=== PATIENT | female | born 1990 | race Caucasian/White ===

== ENCOUNTER 2016-08-13 16:08 | Outpatient (CLI) | payer MEDICAID ==
--- NOTE | 2016-08-14 09:25 | XRAY Report ---
THREE-VIEW LUMBAR SPINE: 08/13/2016 CLINICAL INDICATION: Back pain, sciatica. FINDINGS: AP, lateral, coned-down views of the lumbar spine are compared to previous films of 2014. There is minimal levoscoliosis, which may be positional in nature. There is no evidence of fr acture or subluxation. The disk spaces are preserved. The visualized bowel gas pattern is normal. IMPRESSION: MINIMAL LEVOSCOLIOSIS, WHICH MAY BE POSITIONAL IN NATURE. NO EVIDENCE OF FRACTURE OR DUNLAP BLUXATION. JOB #: [id number] EXT JOB #:[id number]
== END 2016-08-13 16:09 | disposition home or self-care (01) ==
LOC: DI.N 16:08
PROVIDERS: ATTEND Family Medicine
DX: M54.41 Lumbago with sciatica, right side (principal); M41.86 Other forms of scoliosis, lumbar region
CPT/HCPCS: 72100

== ENCOUNTER 2016-08-27 07:35 | Outpatient (CLI) | payer MEDICAID ==
--- NOTE | 2016-08-27 10:19 | MRI Report ---
EXAM: MRI LUMBAR SPINE WITHOUT CONTRAST EXAM DATE: 08/27/2016 08:13 AM. CLINICAL HISTORY: Lumbago with sciatica, right side. COMPARISON: No prior lumbar MRI. TECHNIQUE: Multiplanar, multisequence T1-weighted and fluid-sensitive sequences of the lumbar spine f rom T12 to S1 without contrast. Other: None. FINDINGS: Spinal Cord: The conus terminates at T12-L1. No signal abnormality in the visualized spinal cord. Alignment: No spondylolysis or spondylolisthesis. Bone Marrow: Five kma-yhq-grtpmde lumbar vertebral bodies are assumed. No gross fractures or bone les ions. No bone marrow edema. Disk Levels/Facets: T12-L1: Unremarkable. L1-L2: Minimal incidental anterior disk bulge, otherwise unremarkable. L2-L3: Minimal incidental anterior disk bulge, otherwise unremarkable. L3-L4: Unremarkable. L4-L5: Unremarkable. L5-S1: Very small midline posterior disk bulge. Otherwise unremarkable, no stenosis. Musculature: Normal. No edema or fatty atrophy. Other: Unremarkable appearing facet joints. IMPRESSION: Minimal early degenerative changes at multiple levels without evidence for acute abnormal ity, disk extrusion or stenosis. Comment: The following findings are so common in adults without low back pain that while we report th eir presence, they must be interpreted with caution and in the context of the clinical situation. (Re orly Mercado et al, Spine 2001) Prevalence of findings in patients without low back pain: Disk degeneration (any evidence): 92% Disk desiccation/T2 signal loss: 83% Disk height loss: 56% Disk bulge: 64% Disk protrusion: 32% Annular tear/high intensity zone: 38% [facility] Referring Provider Line: [phone] SITE ID: [id number]
== END 2016-08-27 07:36 | disposition home or self-care (01) ==
LOC: DI 07:35
PROVIDERS: ATTEND Family Medicine
DX: M54.41 Lumbago with sciatica, right side (principal)
CPT/HCPCS: 72148

== ENCOUNTER 2017-02-10 16:17 | Emergency (ER) | payer MEDICAID ==
[2017-02-10 16:29] VITALS: BP 118/70
--- NOTE | 2017-02-10 17:09 | XRAY Preliminary Report ---
Exam: XR CHEST 2 VIEW PA/LAT IMPRESSION: Normal 2-view chest radiography. [facility] SITE ID: [id number]
--- NOTE | 2017-02-10 17:23 | XRAY Report ---
EXAM: CHEST RADIOGRAPHY EXAM DATE: 02/10/2017 04:52 PM. CLINICAL HISTORY: Cough for the last several days. New onset of shortness of breath. COMPARISON: None. TECHNIQUE: 2 views. FINDINGS: Lungs/Pleura: No focal opacities evident. No pleural effusion. No pneumothorax. Normal volumes. Mediastinum: Heart and mediastinal contours are unremarkable. Other: None. IMPRESSION: Normal 2-view chest radiography. [facility] Referring Provider Line: [phone] SITE ID: [id number]
== END 2017-02-10 19:44 | disposition left against medical advice (07) ==
LOC: ED 16:17
DX: Z53.21 Procedure and treatment not carried out due to patient leaving prior to being seen by health care provider (principal)
CPT/HCPCS: 71020

== ENCOUNTER 2017-09-18 11:40 | Outpatient (CLI) | payer MEDICAID ==
[2017-09-18 19:18] LABS: BASOPHILS # (AUTO) 0.1 10^3/uL (0.0-0.1); BASOPHILS % (AUTO) 0.8 %; EOSINOPHILS # (AUTO) 0.5 10^3/uL (0.0-0.7); HGB - HEMOGLOBIN 13.1 g/dL (12.0-16.0); LYMPHOCYTES # (AUTO) 2.3 10^3/uL (1.5-3.5); LYMPHOCYTES % (AUTO) 30.2 %; MEAN CORPUSCULAR HEMOGLOBIN 28.9 pg (27.0-31.0); MEAN CORPUSCULAR HGB CONC 32.5 g/dL (32.0-36.0); MEAN PLATELET VOLUME 10.1 fL (7.9-10.8); MONOCYTES # (AUTO) 0.4 10^3/uL (0.0-1.0); MONOCYTES % (AUTO) 4.8 %; NEUTROPHILS # (AUTO) 4.4 10^3/uL (1.5-6.6); NEUTROPHILS % (AUTO) 58.2 %; PLT - PLATELET COUNT 229 10^3/uL (130-450); RED BLOOD COUNT 4.51 10^6/uL (4.20-5.40); RED CELL DISTRIBUTION WIDTH 13.5 % (12.0-15.0); WHITE BLOOD COUNT 7.5 x10^3/uL (4.8-10.8)
[2017-09-18 19:31] LABS: ALBUMIN 4.5 g/dL (3.2-5.5); ALBUMIN/GLOBULIN RATIO 1.5 (1.0-2.2); CALCIUM 9.9 mg/dL (8.5-10.3); CREATININE 0.8 mg/dL (0.4-1.0); TOTAL PROTEIN 7.6 g/dL (6.7-8.2)
== END 2017-09-18 11:41 | disposition home or self-care (01) ==
LOC: LAB.N 11:40
PROVIDERS: ATTEND Family Medicine
DX: R53.83 Other fatigue (principal)
CPT/HCPCS: 36415; 80053; 84443; 85025

== ENCOUNTER 2017-12-16 08:00 | Outpatient (CLI) | payer MEDICAID ==
[2017-12-16 14:32] LABS: BILIRUBIN,URINE NEGATIVE (NEGATIVE); GLUCOSE, URINE (UA) NEGATIVE (NEGATIVE); KETONES,URINE (UA) NEGATIVE (NEGATIVE); LEUKOCYTE ESTERASE, URINE NEGATIVE (NEGATIVE); NITRITE,URINE NEGATIVE (NEGATIVE); OCCULT BLOOD,URINE TRACE-INTA (NEGATIVE); PROTEIN,URINE NEGATIVE (NEGATIVE); UROBILINOGEN,URINE 0.2 (NORMAL) E.U./dL (NORMAL)
[2017-12-16 14:51] LABS: CLARITY,URINE CLOUDY (CLEAR)
[2017-12-16 14:52] LABS: AMORPHOUS SEDIMENT,UR Marked /LPF; BACTERIA,URINE None Seen /HPF (None Seen); RBC,URINE None Seen /HPF (0-5); SQUAMOUS EPITHELIAL CELL,UR NONE SEEN (<= Few)
== END 2017-12-16 08:01 | disposition home or self-care (01) ==
LOC: LAB.R 08:00
PROVIDERS: ATTEND Physician Assistant Medical
DX: R10.30 Lower abdominal pain, unspecified (principal); R31.9 Hematuria, unspecified; R35.0 Frequency of micturition
CPT/HCPCS: 81001; 87086

== ENCOUNTER 2017-12-22 19:31 | Outpatient (CLI) | payer MEDICAID ==
--- NOTE | 2017-12-23 11:00 | Ultrasound Report ---
Reason: GROIN PAIN,LEFT Procedure Date: 12/22/2017 Accession Number: [id number] / [id number] Procedure: US - Pelvic Limited or F/U CPT Code: FULL RESULT: EXAM: LIMITED PELVIC ULTRASOUND EXAM DATE: 12/22/2017 07:55 PM. CLINICAL HISTORY: GROIN Pain, left. COMPARISON: None. TECHNIQUE: Real-time scanning was performed of the left lower quadrant with static images obtained. FINDINGS: A total of 25 images including dynamic/cine capture are submitted of the left lower quadrant with limited use of color Doppler. A partially-cystic, partially-solid hypoechoic structure labeled left adnexa and area of pain demonstrates arterial flow, measures 4.8 x 2.6 x 3.9 cm with a cystic component measuring 1.8 x 1.4 x 1.5 cm. This is compatible with an ovary with a dominant follicle. While arterial flow is demonstrated, no venous outflow is shown, and the ovarian features are somewhat indistinct with the ovary being top normal in size. This raises concern for partial torsion of the venous outflow or torsion-detorsion given that this represents the patient's area of pain. History of left-sided groin pain which increases with heavy lifting and a clinical concern for hernia are provided. Static and dynamic images in the region of the inguinal canal demonstrate peritoneal fat content traversing abdominal wall defect medial to the common femoral artery and vein. IMPRESSION: 1. Suspect reducible fat-containing left inguinal hernia. 2. Ovarian torsion-detorsion or partial torsion is not excluded based on this examination. Recommend formal transabdominal and transvaginal pelvic ultrasound to exclude ovarian torsion. Direct sonographic evaluation and correlation of the suspected inguinal hernia by the radiologist with no additional charge to the patient could also be performed at that time. The above findings of possible ovarian torsion as well as a likely reducible fat-containing inguinal hernia were discussed with Carter Finney by Dr. Jarett Dee at 09:17 hrs on 12/23/17. The agreed upon plan by both parties is that the patient will be asked to return to the ultrasound department today at her earliest convenience for further imaging. HIWOT
== END 2017-12-22 19:32 | disposition home or self-care (01) ==
LOC: DI 19:31
PROVIDERS: ATTEND Physician Assistant Medical
DX: R10.32 Left lower quadrant pain (principal)
CPT/HCPCS: 76857

== ENCOUNTER 2017-12-23 10:25 | Outpatient (CLI) | payer MEDICAID ==
--- NOTE | 2017-12-24 13:56 | Ultrasound Report ---
Reason: OVARIAN TORSIO Procedure Date: 12/23/2017 Accession Number: [id number] / [id number] Procedure: US - Pelvic w/Transvaginal CPT Code: FULL RESULT: EXAM: PELVIC ULTRASOUND EXAM DATE: 12/23/2017 11:44 AM. CLINICAL HISTORY: Intermittent left-sided pain. Prior . COMPARISON: PELVIS LIMITED 12/22/2017 7:55 PM. TECHNIQUE: Realtime transabdominal pelvic scan performed to identify the uterus and adnexa and as an overview of other pelvic structures, followed by transvaginal scan to provide greater detail of the uterus and adnexa, with static image documentation. FINDINGS: Uterus: 8.3 x 4.0 x 5.2 cm, volume 90.3 cc. Anteverted position. Normal overall size and echotexture. Masses: None. Endometrium: 13.9 mm. Normal. Cervix: Unremarkable. Right Ovary: 3.1 x 2.0 x 2.8 cm, volume 3.2 cc. Normal echotexture and blood flow. Left Ovary: 4.2 x 2.6 x 3.4 cm, volume 19.4 cc. Normal arterial and venous blood flow. 1.8 x 0.8 x 0.9 cm simple cyst. 1.9 x 1.9 x 1.9 cm avascular complex cyst. These findings correspond to the previously described left ovary. Free Fluid: Very small amount of free fluid. Other: None. IMPRESSION: 1. No ovarian torsion. 2. 1.9 cm hemorrhagic cyst left ovary. 3. Very small amount of free fluid. [facility]
== END 2017-12-23 10:26 | disposition home or self-care (01) ==
LOC: DI 10:25
PROVIDERS: ATTEND Physician Assistant Medical
DX: N83.202 Unspecified ovarian cyst, left side (principal); R10.9 Unspecified abdominal pain
CPT/HCPCS: 76830; 76856

== ENCOUNTER 2018-02-03 17:14 | Emergency (ER) | payer MEDICAID ==
[2018-02-03 17:54] LABS: BASOPHILS # (AUTO) 0.1 10^3/uL (0.0-0.1); BASOPHILS % (AUTO) 0.8 %; EOSINOPHILS # (AUTO) 0.5 10^3/uL (0.0-0.7); EOSINOPHILS % (AUTO) 5.5 %; HGB - HEMOGLOBIN 13.2 g/dL (12.0-16.0); LYMPHOCYTES # (AUTO) 3.3 10^3/uL (1.5-3.5); LYMPHOCYTES % (AUTO) 36.8 %; MEAN CORPUSCULAR HEMOGLOBIN 29.6 pg (27.0-31.0); MEAN CORPUSCULAR HGB CONC 33.6 g/dL (32.0-36.0); MEAN CORPUSCULAR VOLUME 87.9 fL (81.0-99.0); MONOCYTES # (AUTO) 0.4 10^3/uL (0.0-1.0); MONOCYTES % (AUTO) 4.5 %; NEUTROPHILS # (AUTO) 4.7 10^3/uL (1.5-6.6); NEUTROPHILS % (AUTO) 52.4 %; PLT - PLATELET COUNT 242 10^3/uL (130-450); RED BLOOD COUNT 4.47 10^6/uL (4.20-5.40); RED CELL DISTRIBUTION WIDTH 13.1 % (12.0-15.0); WHITE BLOOD COUNT 8.9 x10^3/uL (4.8-10.8)
[2018-02-03 18:11] LABS: BILIRUBIN,URINE NEGATIVE (NEGATIVE); GLUCOSE, URINE (UA) NEGATIVE (NEGATIVE); KETONES,URINE (UA) NEGATIVE (NEGATIVE); LEUKOCYTE ESTERASE, URINE NEGATIVE (NEGATIVE); NITRITE,URINE NEGATIVE (NEGATIVE); OCCULT BLOOD,URINE NEGATIVE (NEGATIVE); PROTEIN,URINE NEGATIVE (NEGATIVE); UROBILINOGEN,URINE 0.2 (NORMAL) E.U./dL (NORMAL)
[2018-02-03 18:13] LABS: ALBUMIN/GLOBULIN RATIO 1.7 (1.0-2.2); BILIRUBIN,TOTAL 0.9 mg/dL (0.2-1.0); CALCIUM 9.7 mg/dL (8.5-10.3); CREATININE 0.8 mg/dL (0.4-1.0)
[2018-02-03 18:23] LABS: CLARITY,URINE CLEAR (CLEAR); HCG UR QUAL NEGATIVE
[2018-02-03] MEDS ORDERED: KETOROLAC 60 MG/2 ML VIAL IVP STA (18:31)
--- NOTE | 2018-02-03 18:33 | ED Physician Documentation ---
PD HPI ABD PAIN - Stated complaint Stated Complaint: LT ABD PX - Chief complaint Chief Complaint: Abd Pain - History obtained from History obtained from: Patient - History of Present Illness Timing - onset: Other (27-year-old woman status post remote tubal ligation has had ongoing left pelvic pain for the last 2 years. She had an ultrasound in November showing a 1.9 cm ovarian cyst without evidence of torsion. At 230 today the pain suddenly became worse. There is no associated bleeding but she does have irregular menses now. Not nauseous. No changes in bowel movements.) Review of Systems Ten Systems: 10 systems reviewed and negative Constitutional: reports: Reviewed and negative Nose: reports: Reviewed and negative Cardiac: reports: Reviewed and negative Respiratory: reports: Reviewed and negative PD PAST MEDICAL HISTORY - Past Medical History Cardiovascular: None Respiratory: None Endocrine/Autoimmune: None GI: None [employer]ER: None : None HEENT: None Psych: None Musculoskeletal: Chronic back pain Derm: None - Past Surgical History Past Surgical History: Yes /[employer]ES [employer]ER: section, Tubal ligation - Present Medications Home Medications: Ambulatory Orders Medication Instructions Recorded Confirmed Cyclobenzaprine [Flexeril] 10 mg PO TID PRN 02/10/17 02/10/17 Trazodone HCl 100 mg PO DAILY 02/10/17 02/10/17 Meloxicam [Mobic] 7.5 mg PO BID PRN #20 tablet 02/03/18 Oxycodone HCl/Acetaminophen 1 - 2 each PO Q6H PRN #14 tablet 02/03/18 [Percocet 5-325 mg Tablet] - Allergies Allergies/Adverse Reactions: Allergies Allergy/AdvReac Type Severity Reaction Status Date / Time hydrocodone Allergy Itching Verified 02/03/18 17:21 - Social History Does the pt smoke?: Yes Smoking Status: Current every day smoker Does the pt drink ETOH?: No Does the pt have substance abuse?: No - Immunizations Immunizations are current?: Yes - POLST Patient has POLST: No PD ED PE NORMAL - Vitals Vital signs reviewed: Yes - General General: Alert and oriented X 3, No acute distress - Neck Neck: Supple, no meningeal sign, No bony TTP - Cardiac Cardiac: RRR, No murmur - Respiratory Respiratory: No respiratory distress, Clear bilaterally - Abdomen Abdomen: Normal bowel sounds, Soft, Non tender - Derm Derm: Normal color, Warm and dry - Extremities Extremities: No edema, No calf tenderness / cord - Neuro Neuro: Alert and oriented X 3, Normal speech - Psych Psych: Normal mood, Normal affect Results - Vitals Vitals: Vital Signs - 24 hr 02/03/18 17:19 Temperature 36.8 C Heart Rate 81 Respiratory 20 Rate Blood Pressure 127/72 O2 Saturation 100 Oxygen O2 Source Room air - Labs Labs: Laboratory Tests 02/03/18 02/03/18 02/03/18 17:47 17:47 18:05 WBC 8.9 RBC 4.47 Hgb 13.2 Hct 39.3 MCV 87.9 MCH 29.6 MCHC 33.6 RDW 13.1 Plt Count 242 MPV 9.0 Neut # (Auto) 4.7 Lymph # (Auto) 3.3 [place] # (Auto) 0.4 Eos # (Auto) 0.5 Baso # (Auto) 0.1 Absolute Nucleated RBC 0.00 Nucleated RBC % 0.0 Sodium 137 Potassium 3.5 Chloride 100 L Carbon Dioxide 28 Anion Gap 9.0 BUN 14 Creatinine 0.8 Estimated GFR (MDRD) 87 L Glucose 88 Calcium 9.7 Total Bilirubin 0.9 AST 27 ALT 22 Alkaline Phosphatase 65 Total Protein 8.0 Albumin 5.0 Globulin 3.0 Albumin/Globulin Ratio 1.7 Lipase 24 Urine Color YELLOW Urine Clarity CLEAR Urine pH 7.0 Ur Specific [place] 1.025 Urine Protein NEGATIVE Urine Glucose (UA) NEGATIVE Urine Ketones NEGATIVE Urine Occult Blood NEGATIVE Urine Nitrite NEGATIVE Urine Bilirubin NEGATIVE Urine Urobilinogen 0.2 (NORMAL) Ur Leukocyte Esterase NEGATIVE Ur Microscopic Review NOT INDICATED Urine Culture Comments NOT INDICATED Urine HCG, Qual NEGATIVE - Rads (name of study) CT A/P Radiology: EMP read contemporaneously (negative) PD MEDICAL DECISION MAKING - ED course ED course: This is a 27-year-old woman with chronic pelvic pain previously attributed to left ovarian cyst who had a sudden increase in pain today. She has a benign abdominal examination. CT was done to evaluate for torsion and other pathologies on the left side which was negative. She was feeling better after Toradol. Departure - Departure Disposition: 01 Home, Self Care Clinical Impression: Pelvic pain Condition: Good Record reviewed to determine appropriate education?: Yes Instructions: ED Pelvic Pain [facility] Prescriptions: Meloxicam [Mobic] 7.5 mg PO BID PRN #20 tablet PRN Reason: Pain Oxycodone HCl/Acetaminophen [Percocet 5-325 mg Tablet] 1 - 2 each PO Q6H PRN #14 tablet PRN Reason: pain Comments: Follow-up with your OB next week as scheduled. Return for new or worsening symptoms. Do not drink or drive while taking narcotic pain medication. Note that many narcotic pain relievers also contain Tylenol/acetaminophen. Please ensure that your total dose of acetaminophen from all sources does not exceed 3 g (3000 mg) per day. You may get constipated while on this medication. Take a stool softener such as Colace twice a day while you are on it. Also add an kyps-rwy-wecejvu laxative such as senna or MiraLAX on any day that you do not have a bowel movement. If you received a narcotic pain medication or sedative while in the emergency department, do not drive for the next 24 hours.
[2018-02-03] MEDS ORDERED: IOPAMIDOL-300 100 ML VIAL ONE (18:56)
[2018-02-03] MEDS ORDERED: IOPAMIDOL-300 100 ML VIAL IVP ONE (19:25)
--- NOTE | 2018-02-03 19:35 | CT Report ---
Reason: LLQ pain, IV only Procedure Date: 02/03/2018 Accession Number: [id number] / [id number] Procedure: CT - Abdomen/Pelvis W/ CPT Code: FULL RESULT: EXAM: CT ABDOMEN AND PELVIS EXAM DATE: 02/03/2018 07:21 PM. CLINICAL HISTORY: LLQ pain, IV only. COMPARISONS: ABDOMEN/PELVIS W/O 12/29/2013 2:24 AM. TECHNIQUE: Routine helical CT imaging was performed through the abdomen and pelvis. IV contrast: ISOVUE 300 100mL. Enteric contrast: No. Reconstructions: Coronal and sagittal. In accordance with CT protocol optimization, one or more of the following dose reduction techniques were utilized for this exam: automated exposure control, adjustment of mA and/or KV based on patient size, or use of iterative reconstructive technique. FINDINGS: Lung Bases: Unremarkable. Liver: Normal. No masses. Gallbladder/Bile Ducts: Unremarkable. Spleen: Normal. Pancreas: Normal. Adrenal Glands: Normal. Kidneys: Normal. No masses or hydronephrosis. Peritoneal Cavity/Bowel: Normal. No free fluid, free air or adenopathy. No masses or acute inflammatory process. The appendix is well visualized and normal. Pelvic Organs: Normal. The bladder and visualized pelvic organs are within normal limits. Vasculature: No aneurysms or other significant abnormality. Bones: No significant abnormality. Other: None. IMPRESSION: Normal abdomen and pelvis CT. [facility]
[2018-02-03 20:08] VITALS: BP 121/86
== END 2018-02-03 20:10 | disposition home or self-care (01) ==
LOC: ED 17:14
DX: R10.2 Pelvic and perineal pain (principal); G89.29 Other chronic pain; N92.6 Irregular menstruation, unspecified; F17.200 Nicotine dependence, unspecified, uncomplicated; Z98.51 Tubal ligation status
CPT/HCPCS: 36415; 74177; 80053; 81003; 81025; 83690; 85025; 96374; 99283; Q9967; 81001; 87086

== ENCOUNTER 2018-02-08 10:21 | Outpatient (CLI) | payer MEDICAID | END 2018-02-08 10:22 | disposition home or self-care (01) | LOC: LAB.R 10:21 | PROVIDERS: ATTEND Registered Nurse | DX: R10.2 Pelvic and perineal pain (principal) | CPT/HCPCS: 87491; 87591 ==

== ENCOUNTER 2018-02-10 16:00 | Outpatient (CLI) | payer MEDICAID ==
--- NOTE | 2018-02-11 09:22 | Ultrasound Report ---
Reason: PELVIC AND PERINEAL PAIN Procedure Date: 02/10/2018 Accession Number: [id number] / [id number] Procedure: US - Pelvic w/Transvaginal CPT Code: FULL RESULT: EXAM: PELVIC ULTRASOUND EXAM DATE: 02/10/2018 05:04 PM. CLINICAL HISTORY: Pelvic and perineal pain. Last menstrual period 01/28/2018. Heavy flow at menstruation. COMPARISON: Abdomen/pelvis w/ 02/03/2018 7:11 PM. Pelvis limited 12/23/2017 7:55 PM. TECHNIQUE: Realtime transabdominal pelvic scan performed to identify the uterus and adnexa and as an overview of other pelvic structures, followed by transvaginal scan to provide greater detail of the uterus and adnexa, with static image documentation. FINDINGS: Uterus: 6.4 x 3.9 x 4.6 cm, volume 59.5 cc. Anteverted position. Normal overall size and echotexture. Masses: None. Endometrium: 7.6 mm. Normal. Cervix: Unremarkable. Right Ovary: 4.1 x 2.6 x 2.7 cm, volume 14.8 cc. Normal echotexture and blood flow. Left Ovary: 2.0 x 2.5 x 2.3 cm, volume 5.8 cc. Normal echotexture and blood flow. Free Fluid: Small amount, within physiologic limits. Other: None. IMPRESSION: Normal pelvic ultrasound. [facility]
== END 2018-02-10 16:01 | disposition home or self-care (01) ==
LOC: DI 16:00
PROVIDERS: ATTEND Registered Nurse
DX: R10.2 Pelvic and perineal pain (principal)
CPT/HCPCS: 76830; 76856

== ENCOUNTER 2018-02-16 15:43 | Outpatient (CLI) | payer MEDICAID | END 2018-02-16 23:59 | disposition home or self-care (01) | LOC: LAB.R 15:43 | PROVIDERS: ATTEND Obstetrics & Gynecology | DX: Z11.3 Encounter for screening for infections with a predominantly sexual mode of transmission (principal) | CPT/HCPCS: 87491; 87591 ==

== ENCOUNTER 2018-03-15 10:55 | Outpatient (CLI) | payer MEDICAID ==
[2018-03-15 11:25] LABS: HCG UR QUAL NEGATIVE
[2018-03-15 11:28] LABS: BASOPHILS # (AUTO) 0.1 10^3/uL (0.0-0.1); BASOPHILS % (AUTO) 0.9 %; EOSINOPHILS % (AUTO) 11.2 %; HGB - HEMOGLOBIN 14.6 g/dL (12.0-16.0); LYMPHOCYTES # (AUTO) 2.6 10^3/uL (1.5-3.5); LYMPHOCYTES % (AUTO) 29.4 %; MEAN CORPUSCULAR HGB CONC 34.1 g/dL (32.0-36.0); MEAN CORPUSCULAR VOLUME 88.2 fL (81.0-99.0); MEAN PLATELET VOLUME 9.6 fL (7.9-10.8); MONOCYTES # (AUTO) 0.4 10^3/uL (0.0-1.0); NEUTROPHILS # (AUTO) 4.8 10^3/uL (1.5-6.6); NEUTROPHILS % (AUTO) 53.5 %; PLT - PLATELET COUNT 235 10^3/uL (130-450); RED BLOOD COUNT 4.87 10^6/uL (4.20-5.40); RED CELL DISTRIBUTION WIDTH 12.5 % (12.0-15.0); WHITE BLOOD COUNT 8.9 x10^3/uL (4.8-10.8)
[2018-03-15 11:50] LABS: ALBUMIN 4.9 g/dL (3.2-5.5); ALBUMIN/GLOBULIN RATIO 1.5 (1.0-2.2); BILIRUBIN,TOTAL 0.7 mg/dL (0.2-1.0); CALCIUM 9.9 mg/dL (8.5-10.3); CREATININE 0.6 mg/dL (0.4-1.0); TOTAL PROTEIN 8.2 g/dL (6.7-8.2)
== END 2018-03-15 10:56 | disposition home or self-care (01) ==
LOC: LAB 10:55
PROVIDERS: ATTEND Obstetrics & Gynecology
DX: Z01.812 Encounter for preprocedural laboratory examination (principal); R10.2 Pelvic and perineal pain; R10.32 Left lower quadrant pain
CPT/HCPCS: 36415; 80053; 81025; 85025

== ENCOUNTER 2018-03-17 11:17 | Day surgery (SDC) | payer MEDICAID ==
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
[2018-03-17] MEDS ORDERED: LACTATED RINGERS 1,000 ML IV ONE ×2 (12:05→15:59)
--- NOTE | 2018-03-17 12:18 | ANESTHESIA ---
Pre-Anesthesia VS, & Labs - Diagnosis pelvic pain - Procedure laparoscopy, cystoscopy Height 5 ft 7 in Weight (kg) 59.4 kg Body Mass Index 20.3 - NPO >8 hours - Is Patient ?: No Home Medications and Allergies Cyclobenzaprine [Flexeril] 10 mg PO TID PRN 02/10/17 Trazodone HCl 100 mg PO DAILY 02/10/17 Allergies/Adverse Reactions: Allergies Allergy/AdvReac Type Severity Reaction Status Date / Time hydrocodone Allergy Itching Verified 02/03/18 17:21 Anes History & Medical History - Anesthetic History Anesthesia Complications: reports: No previous complications - Medical History Cardiovascular: reports: None Pulmonary: reports: None Gastrointestinal: reports: None Urinary: reports: None Musculoskeletal: reports: Chronic back pain Endocrine/Autoimmune: reports: None Blood Disorders: reports: None Skin: reports: None Smoking Status: Current every day smoker - Surgical History Gynecologic: section, Tubal ligation Exam General: Alert Dental: WNL Mouth Opening: Greater than 4 Fingerbreadths Neck Mobility: Normal Mallampati classification: II Thyromental Distance: greater than 6 cm Respiratory: Lungs clear Cardiovascular: Regular rate Plan Anesthesia Type: General Consent for Procedure(s) Verified and Reviewed: Yes Code Status: Attempt Resuscitation ASA classification: 2-Mild systemic disease Is this case an emergency?: Yes
[2018-03-17] MEDS ORDERED: oxyCODONE 5 MG TABLET PO PRN (13:00)
[2018-03-17] MEDS ORDERED: ALPRAZolam 0.25 MG TABLET PO PRN (13:02)
[2018-03-17] MEDS ORDERED: BUPIVACAINE 0.25%-EPI 1:200000 PF 30 ML VIAL ONE (13:04)
--- NOTE | 2018-03-17 13:18 | OPERATIVE REPORT ---
Operative Report - General Planned Procedure: Diagnostic laparoscopy and cystoscopy Pre-Op Diagnosis: Abdominal and pelvic pain, mostly left-sided; Dyscrasia; Hematuria Procedure Performed: Diagnostic laparoscopy, Laparoscopic excision of endometriosis from 2 sites and cystoscopy Post Op Diagnosis: Endometriosis; Interstitial Cystitis; same as above - Procedure Note Primary Surgeon: Bala Bolanos MD, FACOG, FICS Anesthesia Provider: Rubens Phillip CRNA Anesthesia Technique: General ET tube Pathology: L Uterosacral Endometriosis: L Pararectal endometriosis; Endometrial sample IV Fluids (mL): 1,000 Estimated Blood Loss (mL): 5 Urine Output (mL): 85 Drain/Tube Type: Other (Rojo) Complications: None - Other Other Information/Narrative: FINDINGS 1. The external exam genitalia were examined and no concerning lesions were discovered. There was no evidence of genital trauma. The hiatus was 2 centimeters in diameter. The clitoris was of normal size. The distribution of pubic hair was normal. The urethra was was had a appropriate angle and of normal caliber. 2. Examination of the vagina found a normal rugated mucosa without evidence of lesions. There was no blood or discharge evident. Note the vagina had been prepped prior to examination. 3. Cervix was without significant cervicitis or visible plaques/lesions. There was no paracervical fullness. 4. Uterus was retroverted retroflexed and normal size without evidence of . The contour the uterus was smooth and not suggestive of fibroids. There were some minor bladder adhesions from her prior section. These did not explain her pain. The inguinal canal opening was somewhat generous but no evidence of true herniation. 5. Ovaries were of normal size and mobile. 6. On the left uterosacral ligament there was a classic powder burn and lab found extending roughly 2 x 3 cm. Around it was dense scarification. This finding explained her left lower quadrant pain. 7. In the left her rectal region there was a similar scarified bleb of endometriosis approximately extending out over 2 cm. 8. The appendix appeared normal but was partially retrocecal. 9. Liver showed evidence of mild scarification 10. Examination of the previous scar did not find any nodules. PREOP DISCUSSION Prior to entering the OR, I met the patient and family in the preoperative holding room. Patient confirms that she continues to have mid abdominal and left lower quadrant pain particularly on defecation. We reviewed her informed consent. Our discussion included occasions, mechanics of the procedures, intended benefits, risks /possible complications and alternatives. She is aware of the possibility of blood loss, transfusion, wound infection, damage to bowel, damage to bladder or urinary tract and postoperative pain. She understands that surgery may not remedy all of her problems and over time recurrent pain could develop. She realizes that visual abnormality does not guarantee pathology and occasionally normal appearing organs may harbor unseen pathology or can develop pathology in the future. All questions were reviewed and answered. Informed consent paperwork was signed. Patient's medical history and intended procedure was reviewed with anesthesiology and OR staff. LAPAROSCOPY Patient was brought into the operating room and placed on the table in the supine position. She was uneventfully induced and intubated. She was moved to the low dorsal lithotomy position on [facility] mobile stirrups. Timeout briefing was done per protocol. She was prepped and draped in the customary sterile fashion. Exam under anesthesia was done. A Graves speculum was used to visualize the cervix. The anterior cervical lip was grasped with single-tooth tenaculum. Serial application of Hegar probes was employed to determine the endocervical axis and gently dilate. HUMI uterine manipulator was placed uneventfully. All instruments were then removed from the vagina. Rojo was placed, with clear urine output. After injection of Marcaine quarter percent with epinephrine local, a small incision was placed under the umbilical skin fold. A 5 mm Visiport trocar was introduced through the incision and into the abdomen under direct visualization. The abdomen was insufflated with CO2 gas at 12 mm of pressure. Atraumatic entry was confirmed. A 5 mm trocars were uneventfully inserted into the left and right lower quadrant under direct visualization. Patient was placed in deeper Trendelenburg and the abdominal and pelvic contents were assessed. Past sick powder burn/cystic endometriosis was found on the left uterosacral ligament and the pararectal area. Reference findings section and photos. The area of endometriosis over the left uterosacral ligament was identified and demarcated. The endometriosis lay over the ureter and uterine vessels making excision tedious. Beginning at inferior margins of the lesion the peritoneum was grasped and incised to enter the retroperitoneal space. Next continued tension/counter tension and sharp dissection was used to excise the 3 cm x 2 cm patch of endometrium in total. Judicious use of bipolar cautery then was used at the excision edges to obtain complete hemostasis. Reference photo. Perirectal area of endometriosis was identified and placed on tension as to tented away from the rectum. Using scissors a 2 cm oval of endometriosis peritoneum was incised circumferentially and using countertraction the endometriosis was excised in total. Portions of the endometriosis exhibited s ub-serosal cystic activity present. The abdomen was desufflated of CO2 gas and the legs were moved to a high dorsal lithotomy position. HUMI was removed. The abdomen was insufflated with 700 cc of warm normal saline, patient placed in the Trendelenburg position and then all residual CO2 was vented from the abdomen. Trocar sleeves were removed under direct visualization. Skin was closed with interrupted subcuticular stitches of 4-0 Monocryl and dressed with Dermabond. CYSTOSCOPY 70 degree video cystoscope was calibrated and white balanced. The cystoscope was lubricated and passed atraumatically through the urethra into the bladder cavity. Bladder was insufflated with sterile normal ceric saline. Systematic inspection revealed no encroachment on the bladder such as stitches or per foration. Both ureters were patent with free flow of urine. Photographs were taken to document the same Patient was uneventfully aroused from anesthesia. All sponge needle and instrument counts were confirmed as correct. Patient was taken to the recovery room in stable condition. DISPOSITION When patient sufficiently recovers, she will be discharged home. Medications for pain ibuprofen and oxycodone have already been written. She was given complete warning sign and callback instructions. She will be seen in 2 weeks to review operative findings and wound check.
[2018-03-17] MEDS ORDERED: GLYCOPYRROLATE 1 MG/5 ML VIAL IVP ONE (14:00)
[2018-03-17] MEDS ORDERED: fentaNYL 100 MCG/2 ML VIAL IVP ONE (14:00)
[2018-03-17] MEDS ORDERED: ONDANSETRON 4 MG/2 ML VIAL IVP ONE (14:00)
[2018-03-17] MEDS ORDERED: PROPOFOL 200 MG/20 ML VIAL IVP ONE (14:00)
[2018-03-17] MEDS ORDERED: DEXAMETHASONE 4 MG/ML VIAL IVP ONE (14:00)
[2018-03-17] MEDS ORDERED: BUPIVACAINE 0.25%-EPI 1:200000 PF 30 ML VIAL SUBQ ONE ×2 (14:00)
[2018-03-17] MEDS ORDERED: MIDAZOLAM 2 MG/2 ML VIAL IVP ONE (14:00)
[2018-03-17] MEDS ORDERED: KETOROLAC 30 MG/ML VIAL IVP ONE (14:00)
[2018-03-17] MEDS ORDERED: NEOSTIGMINE 1 MG/1 ML 10 ML MDV IVP ONE (14:00)
[2018-03-17] MEDS ORDERED: LIDOCAINE-MPF 2% 5 ML VIAL IM ONE (14:00)
[2018-03-17] MEDS ORDERED: ROCURONIUM 50 MG/5 ML VIAL IVP ONE (14:00)
[2018-03-17 15:55] LABS: BILIRUBIN,URINE NEGATIVE (NEGATIVE); GLUCOSE, URINE (UA) NEGATIVE (NEGATIVE); KETONES,URINE (UA) NEGATIVE (NEGATIVE); LEUKOCYTE ESTERASE, URINE NEGATIVE (NEGATIVE); NITRITE,URINE NEGATIVE (NEGATIVE); OCCULT BLOOD,URINE LARGE (NEGATIVE); PROTEIN,URINE NEGATIVE (NEGATIVE); UROBILINOGEN,URINE 0.2 (NORMAL) E.U./dL (NORMAL)
[2018-03-17 15:58] LABS: CLARITY,URINE HAZY (CLEAR)
[2018-03-17 16:06] LABS: BACTERIA,URINE Rare /HPF (None Seen); RBC,URINE TNTC /HPF (0-5); SQUAMOUS EPITHELIAL CELL,UR RARE Squamous (<= Few)
[2018-03-17] MEDS ORDERED: oxyCODONE 5 MG TABLET ONE (16:24)
[2018-03-17 16:36] VITALS: BP 103/47
[2018-03-17] MEDS ORDERED: IBUPROFEN 600 MG TABLET PO SCH (18:00)
[2018-03-18] MEDS ORDERED: LACTULOSE 10 GM /15 ML UDC PO SCH (09:00)
[2018-03-18] MEDS ORDERED: DOCUSATE SODIUM 250 MG CAPSULE PO SCH (09:00)
== END 2018-03-17 11:18 | disposition home or self-care (01) ==
LOC: SDS 11:17
PROVIDERS: ATTEND Obstetrics & Gynecology
PROC: 0UB44ZX Excision of Uterine Supporting Structure, Percutaneous Endoscopic Approach, Diagnostic (ICD-10-PCS; principal; 2018-03-17 12:30)
PROC: 0DBP4ZX Excision of Rectum, Percutaneous Endoscopic Approach, Diagnostic (ICD-10-PCS; 2018-03-17 12:30)
DX: N80.3 Endometriosis of pelvic peritoneum (principal); N80.5 Endometriosis of intestine; N30.11 Interstitial cystitis (chronic) with hematuria; F17.200 Nicotine dependence, unspecified, uncomplicated; F41.0 Panic disorder [episodic paroxysmal anxiety]; F32.9 Major depressive disorder, single episode, unspecified; R26.89 Other abnormalities of gait and mobility; M79.7 Fibromyalgia; N83.209 Unspecified ovarian cyst, unspecified side; N92.6 Irregular menstruation, unspecified
CPT/HCPCS: 49321; 58662; 81001; A9270; J7120; 87086

== ENCOUNTER 2018-05-25 11:38 | Outpatient (CLI) | payer MEDICAID ==
[2018-05-25] MEDS ORDERED: IOVERSOL 320 100 ML VIAL IVP ONE (12:16)
[2018-05-25] MEDS: IOVERSOL 320 100 ML VIAL IVP ONE (12:36)
--- NOTE | 2018-05-25 16:23 | CT Report ---
Reason: HEMATURIA, CHRONIC BLADDER PAIN, UNSPECIFIED OVARI Procedure Date: 05/25/2018 Accession Number: [id number] / [id number] Procedure: CT - ABDOMEN/PELVIS W/WO CPT Code: FULL RESULT: EXAM: CT ABDOMEN AND PELVIS WITHOUT AND WITH CONTRAST (CT IVP) EXAM DATE: 05/25/2018 12:46 PM. CLINICAL HISTORY: Hematuria, chronic bladder pain. COMPARISONS: ABDOMEN/PELVIS W/ 02/03/2018 7:11 PM. TECHNIQUE: Routine helical imaging was performed through the kidneys, ureters and bladder in the precontrast, postcontrast and delayed phase. IV Contrast: 100 mL Optiray 320. Reconstructions: Coronal and sagittal. In accordance with CT protocol optimization, one or more of the following dose reduction techniques were utilized for this exam: automated exposure control, adjustment of mA and/or KV based on patient size, or use of iterative reconstructive technique. FINDINGS: Lung Bases: Unremarkable. Right Kidney/Ureter: The right ureter is tortuous and opacified through its proximal two-thirds with mild apparent beading at the level of the pelvic inlet and nonopacification of the distal ureter within the pelvis. Opacification of the right renal collecting system is generally adequate with limited opacification of the upper pole moiety and no lesions seen. No stones or dominique hydronephrosis are identified. Left Kidney/Ureter: The left ureter is visualized throughout its course and no definite lesion is seen. The renal collecting system is adequately opacified with no definite lesion seen. Other Solid Organs: The liver, spleen, pancreas, gallbladder, and adrenal glands are unremarkable.The bile ducts are unremarkable. Peritoneal Cavity/Bowel: Visualization limited due to absence of oral contrast and paucity of intraabdominal bowel fat. No free fluid, free air or gross adenopathy or masses. No bowel obstruction. Pelvic Organs: No bladder stones, obstruction or masses. The visualized pelvic organs are unremarkable. Vasculature: Normal. Bones: Normal. Other: None. IMPRESSION: Abnormal tortuosity and appearance of the right ureter, recommend direct visualization. RADIA
== END 2018-05-25 11:39 | disposition home or self-care (01) ==
LOC: DI 11:38
PROVIDERS: ATTEND Specialist
DX: N28.89 Other specified disorders of kidney and ureter (principal)
CPT/HCPCS: 74178; Q9967

== ENCOUNTER 2018-09-21 16:01 | Emergency (ER) | payer MEDICAID ==
[2018-09-21] MEDS ORDERED: oxyCODONE 5 MG TABLET PO STA (16:22)
--- NOTE | 2018-09-21 16:25 | ED Physician Documentation ---
PD HPI ABD PAIN - Stated complaint Stated Complaint: FEMALE - Chief complaint Chief Complaint: Abd Pain - History obtained from History obtained from: Patient - History of Present Illness Timing - onset: Yesterday (27-year-old woman with history of endometriosis and frequent UTIs had a UTI last week which went away with conservative measures, but since yesterday has had increased left lower quadrant pain associated with some white discharge at the end of urination and some urinary burning. No fevers or chills or nausea. No vaginal bleeding. No concern for or STDs.) Review of Systems Constitutional: denies: Fever, Chills Cardiac: denies: Chest pain / pressure, Palpitations Respiratory: denies: Dyspnea, Cough GI: reports: Abdominal Pain. denies: Nausea, Vomiting, Constipation, Diarrhea PD PAST MEDICAL HISTORY - Past Medical History Cardiovascular: None Respiratory: None Endocrine/Autoimmune: None GI: None RISK OFFICER: None : None HEENT: None Psych: None Musculoskeletal: Chronic back pain Derm: None - Past Surgical History Past Surgical History: Yes /RISK OFFICER: section, Tubal ligation - Present Medications Home Medications: Ambulatory Orders Medication Instructions Recorded Confirmed Cyclobenzaprine [Flexeril] 10 mg PO TID PRN 02/10/17 07/28/18 Trazodone HCl 100 mg PO QPM 02/10/17 07/28/18 Amitriptyline HCl 25 mg PO QPM 07/28/18 07/28/18 Meloxicam [Mobic] 7.5 mg PO BID PRN #20 tablet 09/21/18 Oxycodone HCl/Acetaminophen 1 - 2 each PO Q6H PRN #20 tablet 09/21/18 [Percocet 5-325 mg Tablet] - Allergies Allergies/Adverse Reactions: Allergies Allergy/AdvReac Type Severity Reaction Status Date / Time hydrocodone Allergy Rash, Verified 07/28/18 14:08 itching - Social History Does the pt smoke?: Yes Smoking Status: Current every day smoker Does the pt drink ETOH?: No Does the pt have substance abuse?: No - Immunizations Immunizations are current?: Yes - POLST Patient has POLST: No PD ED PE NORMAL - Vitals Vital signs reviewed: Yes - General General: Alert and oriented X 3, Other (Uncomfortable) - Abdomen Abdomen: Other (TTP LLQ, no G/R) - Back Back: No CVA TTP - Derm Derm: Normal color, Warm and dry - Extremities Extremities: No edema, No calf tenderness / cord - Neuro Neuro: Alert and oriented X 3 Results - Vitals Vitals: Vital Signs - 24 hr 09/21/18 16:10 Temperature 37.2 C Heart Rate 74 Respiratory 16 Rate Blood Pressure 126/67 O2 Saturation 99 Oxygen O2 Source Room air - Labs Labs: Laboratory Tests 09/21/18 09/21/18 09/21/18 16:30 17:00 17:00 WBC 8.5 RBC 4.05 L Hgb 11.7 L Hct 36.1 L MCV 89.1 MCH 28.9 MCHC 32.4 RDW 11.9 L Plt Count 195 MPV 10.9 H Neut # (Auto) 4.9 Lymph # (Auto) 2.8 [place] # (Auto) 0.5 Eos # (Auto) 0.3 Baso # (Auto) 0.1 Absolute Nucleated RBC 0.00 Nucleated RBC % 0.0 Sodium 139 Potassium 3.9 Chloride 104 Carbon Dioxide 25 Anion Gap 10.0 BUN 17 Creatinine 0.5 Estimated GFR (MDRD) 149 Glucose 95 Calcium 9.3 Total Bilirubin 0.6 AST 23 ALT 23 Alkaline Phosphatase 60 Total Protein 6.9 Albumin 4.2 Globulin 2.7 Albumin/Globulin Ratio 1.6 Lipase 29 Urine Color YELLOW Urine Clarity CLEAR Urine pH 6.0 Ur Specific [place] 1.015 Urine Protein NEGATIVE Urine Glucose (UA) NEGATIVE Urine Ketones NEGATIVE Urine Occult Blood TRACE-INTA Urine Nitrite NEGATIVE Urine Bilirubin NEGATIVE Urine Urobilinogen 0.2 (NORMAL) Ur Leukocyte Esterase NEGATIVE Ur Microscopic Review NOT INDICATED Urine Culture Comments NOT INDICATED Urine HCG, Qual NEGATIVE - Rads (name of study) Pelvic sono Radiology: EMP read contemporaneously (Mild echogenic focus in the left ovary, 5 mm, possibly involuting hemorrhagic cyst. Otherwise negative without free fluid.) PD MEDICAL DECISION MAKING - ED course ED course: This is a 27-year-old woman with an acute exacerbation of chronic pelvic pain, ultrasound and labs were negative. Pain improved after Toradol and oxycodone here. Departure - Departure Disposition: 01 Home, Self Care Clinical Impression: Pelvic pain Condition: Good Record reviewed to determine appropriate education?: Yes Health Concerns: Acute exacerbation of chronic left pelvic pain with known endometriosis. Plan of Treatment: Ultrasound shows an involuting left ovarian cyst. Talk with your risk and insurance manager. You are already planning a hysterectomy. Discussed potential left oophorectomy at the time of the hysterectomy since that seems to be the side that usually bothers you. Care Goals: Pain control with anti-inflammatories and narcotics Instructions: ED Pelvic Pain [facility] Follow-Up: Bala Thakur MD [Provider Admit Priv/Credential] - Within 1 week Prescriptions: Meloxicam [Mobic] 7.5 mg PO BID PRN #20 tablet PRN Reason: Pain Oxycodone HCl/Acetaminophen [Percocet 5-325 mg Tablet] 1 - 2 each PO Q6H PRN #20 tablet PRN Reason: pain Forms: Activity restrictions
[2018-09-21 16:36] LABS: BILIRUBIN,URINE NEGATIVE (NEGATIVE); GLUCOSE, URINE (UA) NEGATIVE (NEGATIVE); KETONES,URINE (UA) NEGATIVE (NEGATIVE); LEUKOCYTE ESTERASE, URINE NEGATIVE (NEGATIVE); NITRITE,URINE NEGATIVE (NEGATIVE); OCCULT BLOOD,URINE TRACE-INTA (NEGATIVE); PROTEIN,URINE NEGATIVE (NEGATIVE); UROBILINOGEN,URINE 0.2 (NORMAL) E.U./dL (NORMAL)
[2018-09-21 16:37] LABS: CLARITY,URINE CLEAR (CLEAR)
[2018-09-21 16:38] LABS: HCG UR QUAL NEGATIVE
[2018-09-21 17:04] LABS: BASOPHILS # (AUTO) 0.1 10^3/uL (0.0-0.1); BASOPHILS % (AUTO) 0.6 %; EOSINOPHILS # (AUTO) 0.3 10^3/uL (0.0-0.7); EOSINOPHILS % (AUTO) 3.4 %; HGB - HEMOGLOBIN 11.7 g/dL (12.0-16.0); LYMPHOCYTES # (AUTO) 2.8 10^3/uL (1.5-3.5); LYMPHOCYTES % (AUTO) 32.9 %; MEAN CORPUSCULAR HEMOGLOBIN 28.9 pg (27.0-31.0); MEAN CORPUSCULAR HGB CONC 32.4 g/dL (32.0-36.0); MEAN CORPUSCULAR VOLUME 89.1 fL (81.0-99.0); MEAN PLATELET VOLUME 10.9 fL (7.9-10.8); MONOCYTES # (AUTO) 0.5 10^3/uL (0.0-1.0); MONOCYTES % (AUTO) 5.9 %; NEUTROPHILS # (AUTO) 4.9 10^3/uL (1.5-6.6); PLT - PLATELET COUNT 195 10^3/uL (130-450); RED BLOOD COUNT 4.05 10^6/uL (4.20-5.40); RED CELL DISTRIBUTION WIDTH 11.9 % (12.0-15.0); WHITE BLOOD COUNT 8.5 x10^3/uL (4.8-10.8)
[2018-09-21 17:18] LABS: ALBUMIN 4.2 g/dL (3.2-5.5); ALBUMIN/GLOBULIN RATIO 1.6 (1.0-2.2); BILIRUBIN,TOTAL 0.6 mg/dL (0.2-1.0); CALCIUM 9.3 mg/dL (8.5-10.3); CREATININE 0.5 mg/dL (0.4-1.0); TOTAL PROTEIN 6.9 g/dL (6.7-8.2)
[2018-09-21] MEDS ORDERED: KETOROLAC 60 MG/2 ML VIAL IM STA (18:13)
[2018-09-21] MEDS ORDERED: KETOROLAC 60 MG/2 ML VIAL IM ONE (18:22)
--- NOTE | 2018-09-21 18:22 | Ultrasound Report ---
Reason: pelvic pain, L Procedure Date: 09/21/2018 Accession Number: [id number] / [id number] Procedure: US - Pelvic w/Transvag+Doppler Comp CPT Code: FULL RESULT: EXAM: PELVIC ULTRASOUND EXAM DATE: 09/21/2018 05:07 PM. CLINICAL HISTORY: Pelvic pain, L. COMPARISON: None. TECHNIQUE: Realtime transabdominal pelvic scan performed to identify the uterus and adnexa and as an overview of other pelvic structures, followed by transvaginal scan to provide greater detail of the uterus and adnexa, with static image documentation. FINDINGS: Uterus: 8.2 x 4.1 x 6 cm, volume 103.8 cc. Anteverted position. Normal overall size and echotexture. Masses: None. Endometrium: 12 mm. Normal. No focal masses Cervix: Unremarkable. Right Ovary: 3.6 x 2.9 x 2.1 cm, volume 11.3 cc. Normal echotexture and blood flow. Left Ovary: 3.4 x 2.3 x 2.7 cm, volume to 10.6 cc. Normal echotexture and blood flow. A small avascular echogenic focus in left ovary measuring 0.5 cm is likely a benign focus (resolving hemorrhagic cyst). Free Fluid: None. Other: None. IMPRESSION: No abnormal uterine or ovarian mass. No adnexal mass. No endometrioma. No free fluid. RADIA
[2018-09-21 19:06] VITALS: BP 120/67
== END 2018-09-21 19:06 | disposition home or self-care (01) ==
LOC: ED 16:01
DX: R10.2 Pelvic and perineal pain (principal); N80.9 Endometriosis, unspecified; N83.202 Unspecified ovarian cyst, left side; Z87.440 Personal history of urinary (tract) infections; F17.200 Nicotine dependence, unspecified, uncomplicated
CPT/HCPCS: 36415; 76830; 76856; 80053; 81003; 81025; 83690; 85025; 93975; 96372; 99282; 99283; A9270; 81001; 87086

== ENCOUNTER 2018-10-26 20:12 | Emergency (ER) | payer MEDICAID ==
[2018-10-26 20:29] VITALS: BP 125/57
[2018-10-26] MEDS ORDERED: oxyCODONE 5 MG TABLET PO STA (20:29)
[2018-10-26] MEDS ORDERED: KETOROLAC 60 MG/2 ML VIAL IM STA (20:29)
[2018-10-26 20:32] LABS: BILIRUBIN,URINE NEGATIVE (NEGATIVE); GLUCOSE, URINE (UA) NEGATIVE (NEGATIVE); KETONES,URINE (UA) NEGATIVE (NEGATIVE); LEUKOCYTE ESTERASE, URINE NEGATIVE (NEGATIVE); NITRITE,URINE NEGATIVE (NEGATIVE); OCCULT BLOOD,URINE NEGATIVE (NEGATIVE); PROTEIN,URINE NEGATIVE (NEGATIVE); UROBILINOGEN,URINE 0.2 (NORMAL) E.U./dL (NORMAL)
[2018-10-26 20:34] LABS: CLARITY,URINE CLEAR (CLEAR)
--- NOTE | 2018-10-26 20:37 | ED Physician Documentation ---
History of Present Illness - Stated complaint Stated Complaint: L SIDE PELVIC PX - Chief complaint Chief Complaint: Abd Pain - History obtained from History obtained from: Patient - History of Present Illness Timing: Yesterday Pain level max: 8 Pain level now: 8 - Additonal information Additional information: L sided pelvic pain since yesterday. worse today. similar to prior ovarian cysts. last was 1 month ago. scheduled for hysterectomy next week. worse with movement and better with rest. has not taken anything for pain today. Review of Systems Constitutional: denies: Fever, Chills Respiratory: denies: Cough GI: denies: Nausea, Vomiting, Diarrhea : denies: Dysuria, Frequency, Hesitancy, Discharge, Now EGA Skin: denies: Rash Musculoskeletal: denies: Neck pain, Back pain Neurologic: denies: Headache PD PAST MEDICAL HISTORY - Past Medical History Past Medical History: Yes Cardiovascular: None Respiratory: None Endocrine/Autoimmune: None GI: None SENIOR SAFETY MANAGEMENT CONSULTANT: None : None HEENT: None Psych: None Musculoskeletal: Chronic back pain Derm: None - Past Surgical History Past Surgical History: Yes /SENIOR SAFETY MANAGEMENT CONSULTANT: section, Tubal ligation - Present Medications Home Medications: Ambulatory Orders Medication Instructions Recorded Confirmed Cyclobenzaprine [Flexeril] 10 mg PO TID PRN 02/10/17 07/28/18 Trazodone HCl 100 mg PO QPM 02/10/17 07/28/18 Amitriptyline HCl 25 mg PO QPM 07/28/18 07/28/18 Meloxicam [Mobic] 7.5 mg PO BID PRN #20 tablet 09/21/18 Oxycodone HCl/Acetaminophen 1 - 2 each PO Q6H PRN #20 tablet 09/21/18 [Percocet 5-325 mg Tablet] Meloxicam [Mobic] 15 mg PO DAILY PRN #20 tablet 10/26/18 Oxycodone HCl/Acetaminophen 1 - 2 each PO Q6H PRN #14 tablet 10/26/18 [Percocet 5-325 mg Tablet] - Allergies Allergies/Adverse Reactions: Allergies Allergy/AdvReac Type Severity Reaction Status Date / Time hydrocodone Allergy Rash, Verified 07/28/18 14:08 itching - Social History Does the pt smoke?: Yes Smoking Status: Current every day smoker Does the pt drink ETOH?: No Does the pt have substance abuse?: No - Immunizations Immunizations are current?: Yes - POLST Patient has POLST: No PD ED PE NORMAL - Vitals Vital signs reviewed: Yes - General General: Alert and oriented X 3, No acute distress, Well developed/nourished - HEENT HEENT: Moist mucous membranes - Neck Neck: Supple, no meningeal sign - Cardiac Cardiac: RRR - Respiratory Respiratory: No respiratory distress, Clear bilaterally - Abdomen Abdomen: Normal bowel sounds, Soft, Non distended, Other (Tender to palpation left lower quadrant without peritoneal signs) - Female Female : Pt declined - Back Back: No CVA TTP - Derm Derm: Warm and dry - Extremities Extremities: No edema - Neuro Neuro: Alert and oriented X 3 - Psych Psych: Normal mood, Normal affect Results - Vitals Vitals: Vital Signs - 24 hr 10/26/18 10/26/18 20:14 20:27 Temperature 37 C 36.7 C Heart Rate 63 71 Respiratory 20 16 Rate Blood Pressure 124/72 125/57 L O2 Saturation 100 98 Oxygen O2 Source Room air - Labs Labs: Laboratory Tests 10/26/18 10/26/18 20:23 20:23 Urine Color YELLOW Urine Clarity CLEAR Urine pH 7.0 Ur Specific [place] 1.010 1.010 Urine Protein NEGATIVE Urine Glucose (UA) NEGATIVE Urine Ketones NEGATIVE Urine Occult Blood NEGATIVE Urine Nitrite NEGATIVE Urine Bilirubin NEGATIVE Urine Urobilinogen 0.2 (NORMAL) Ur Leukocyte Esterase NEGATIVE Ur Microscopic Review NOT INDICATED Urine Culture Comments NOT INDICATED Urine HCG, Qual NEGATIVE PD MEDICAL DECISION MAKING - ED course Complexity details: reviewed results, re-evaluated patient, considered differential, d/w patient ED course: 27-year-old female with left lower quadrant abdominal/pelvic pain. Similar to prior ovarian cyst. We discussed repeat blood work and ultrasound, but as this feels similar to past, will treat her symptomatically instead. Pain well controlled. She is well-appearing, nontoxic. Afebrile. Patient counseled regarding signs and symptoms for which I believe and urgent re-evaluation would be necessary. Patient with good understanding of and agreement to plan and is comfortable going home at this time This document was made in part using voice recognition software. While efforts are made to proofread this document, sound alike and grammatical errors may occur. Departure - Departure Disposition: 01 Home, Self Care Clinical Impression: Ovarian cyst Qualifiers: Laterality: left Qualified Code(s): N83.202 - Unspecified ovarian cyst, left side Condition: Good Instructions: ED Cyst Ovarian Follow-Up: Carter Finney PA-C [Primary Care Provider] - Within 1 week Prescriptions: Meloxicam [Mobic] 15 mg PO DAILY PRN #20 tablet PRN Reason: pain Oxycodone HCl/Acetaminophen [Percocet 5-325 mg Tablet] 1 - 2 each PO Q6H PRN #14 tablet PRN Reason: pain Comments: Use the medication as prescribed. This should improve over the next 24 to 48 hours. Return if you worsen. Do not drink alcohol or drive while on narcotic pain medicine. Note that many narcotic pain relievers also contain tylenol/acetaminophen. Please ensure that your total dose of acetaminophen from all sources does not exceed 3 grams (3000mg) per day. You may constipated on this medication, take a stool softener such as "Colace" twice a day while you are on it. Also recommend a doop-akc-cgqbpst laxative such as senna or MiraLAX any day that you do not have a bowel movement. If you received narcotic pain medication in the emergency department, do not drive or operate machinery for the next 24 hours.
[2018-10-26 20:46] LABS: HCG UR QUAL NEGATIVE
== END 2018-10-26 21:05 | disposition home or self-care (01) ==
LOC: ED 20:12
DX: N83.202 Unspecified ovarian cyst, left side (principal); F17.200 Nicotine dependence, unspecified, uncomplicated
CPT/HCPCS: 81003; 81025; 96372; 99283; A9270; 81001; 87086

== ENCOUNTER 2018-11-02 11:21 | Outpatient (CLI) | payer MEDICAID ==
[2018-11-02 12:01] LABS: BASOPHILS # (AUTO) 0.1 10^3/uL (0.0-0.1); BASOPHILS % (AUTO) 0.4 %; EOSINOPHILS # (AUTO) 0.2 10^3/uL (0.0-0.7); EOSINOPHILS % (AUTO) 1.9 %; HGB - HEMOGLOBIN 13.1 g/dL (12.0-16.0); LYMPHOCYTES % (AUTO) 17.2 %; MEAN CORPUSCULAR HEMOGLOBIN 29.7 pg (27.0-31.0); MEAN CORPUSCULAR HGB CONC 32.7 g/dL (32.0-36.0); MEAN CORPUSCULAR VOLUME 90.9 fL (81.0-99.0); MEAN PLATELET VOLUME 11.2 fL (7.9-10.8); MONOCYTES # (AUTO) 0.3 10^3/uL (0.0-1.0); MONOCYTES % (AUTO) 2.9 %; NEUTROPHILS # (AUTO) 8.8 10^3/uL (1.5-6.6); PLT - PLATELET COUNT 213 10^3/uL (130-450); RED BLOOD COUNT 4.41 10^6/uL (4.20-5.40); RED CELL DISTRIBUTION WIDTH 11.9 % (12.0-15.0); WHITE BLOOD COUNT 11.4 x10^3/uL (4.8-10.8)
[2018-11-02 12:17] LABS: CALCIUM 9.7 mg/dL (8.5-10.3); CREATININE 0.8 mg/dL (0.4-1.0)
[2018-11-02 12:59] LABS: HCG UR QUAL NEGATIVE
== END 2018-11-02 11:22 | disposition home or self-care (01) ==
LOC: LAB 11:21
PROVIDERS: ATTEND Obstetrics & Gynecology
DX: N92.0 Excessive and frequent menstruation with regular cycle (principal); N94.4 Primary dysmenorrhea
CPT/HCPCS: 36415; 80048; 81025; 85025

== ENCOUNTER 2018-11-03 06:01 | Day surgery (SDC) | payer MEDICAID ==
[2018-11-03] MEDS ORDERED: CEFAZOLIN SODIUM IN 0.9 % NACL 2 GM/100 ML BAG IV ONE (06:36)
[2018-11-03] MEDS ORDERED: LACTATED RINGERS 1,000 ML IV ONE ×2 (07:00→12:24)
[2018-11-03] MEDS ORDERED: BUPIVACAINE 0.25%-EPI 1:200000 PF 30 ML VIAL ONE (07:20)
--- NOTE | 2018-11-03 07:28 | ANESTHESIA ---
Pre-Anesthesia VS, & Labs - Diagnosis menorrhagia - Procedure laparoscopic assisted vaginal hysterectomy Vital Signs: Temp Pulse Resp BP Pulse Ox 36.7 C 62 16 116/71 99 11/03/18 06:30 11/03/18 06:30 11/03/18 06:30 11/03/18 06:30 11/03/18 06:30 Height 5 ft 7 in Weight (kg) 64.3 kg Body Mass Index 22.2 - NPO >8 hours - Is Patient ?: No - Lab Results Lab results reviewed: Yes Home Medications and Allergies Cyclobenzaprine [Flexeril] 10 mg PO TID PRN 02/10/17 Trazodone HCl 100 mg PO QPM 02/10/17 Amitriptyline HCl 25 mg PO QPM 07/28/18 Allergies/Adverse Reactions: Allergies Allergy/AdvReac Type Severity Reaction Status Date / Time hydrocodone Allergy Rash, Verified 07/28/18 14:08 itching Anes History & Medical History - Anesthetic History Anesthesia Complications: reports: No previous complications Family history of Anesthesia Complications: Reports (difficulty breathing) Family history of Malignant Hyperthermia: Denies - Medical History Cardiovascular: reports: None Pulmonary: reports: None Gastrointestinal: reports: None Urinary: reports: None Neuro: reports: Headaches, Migraines Musculoskeletal: reports: Chronic back pain Endocrine/Autoimmune: reports: None Blood Disorders: reports: None Skin: reports: None Smoking Status: Current every day smoker - Surgical History Gynecologic: section, Tubal ligation Exam General: Alert, Oriented x3, Cooperative, No acute distress Dental: WNL Mouth Openin Fingerbreadth Neck Mobility: Normal Mallampati classification: II Thyromental Distance: 4-6 cm Respiratory: Lungs clear, Normal breath sounds, No respiratory distress, No accessory muscle use Cardiovascular: Regular rate, Normal S1, Normal S2, No murmurs Plan Anesthesia Type: General Consent for Procedure(s) Verified and Reviewed: Yes Code Status: Attempt Resuscitation ASA classification: 2-Mild systemic disease Is this case an emergency?: No
[2018-11-03] MEDS ORDERED: BUPIVACAINE 0.25%-EPI 1:200000 PF 30 ML VIAL SUBQ ONE (10:21)
[2018-11-03] MEDS ORDERED: SUGAMMADEX 200 MG/2 ML VIAL IVP ONE (12:12)
[2018-11-03] MEDS ORDERED: LORazepam 2 MG/ML VIAL IVP PRN (12:31)
[2018-11-03] MEDS ORDERED: oxyCODONE 5 MG TABLET PO PRN (12:31)
[2018-11-03] MEDS ORDERED: HYDROmorphone 0.5 MG/0.5 ML SYRINGE IVP PRN (12:31)
[2018-11-03] MEDS ORDERED: ONDANSETRON 4 MG/2 ML VIAL IVP PRN (12:31)
[2018-11-03] MEDS ORDERED: MEPERIDINE 50 MG/ML VIAL IVP PRN (12:31)
--- NOTE | 2018-11-03 12:34 | OPERATIVE REPORT ---
Operative Report - General Procedure Date: 11/03/18 Planned Procedure: TLH BS Cysto Pre-Op Diagnosis: Menorrhagia, Dysmenorrhea Procedure Performed: TLH BS Cysto Post Op Diagnosis: Menorrhagia, Dysmenorrhea, endometriosis - Procedure Note Primary Surgeon: Bala Thakur MD Secondary Surgeon: Curt Prescott MD Anesthesia Provider: Mitesh Johns MD Anesthesia Technique: General ET tube Pathology: Uterus with tubes IV Fluids (mL): 600 Estimated Blood Loss (mL): 75 Urine Output (mL): 75 Complications: None
[2018-11-03] MEDS ORDERED: ACETAMINOPHEN 500 MG TABLET PO SCH (13:00)
[2018-11-03 14:43] VITALS: BP 115/70
--- NOTE | 2018-11-03 17:30 | PROCEDURE REPORT ---
DATE OF SERVICE: 11/03/2018 Physician: Bala Thakur MD PREOPERATIVE DIAGNOSES 1. Dysmenorrhea. 2. Menorrhagia. POSTOPERATIVE DIAGNOSES 1. Dysmenorrhea. 2. Menorrhagia. 3. Pelvic endometriosis. PROCEDURE PLANNED: Total laparoscopic hysterectomy with bilateral salpingectomy and cystoscopy. PROCEDURE PERFORMED: Total laparoscopic hysterectomy with bilateral salpingectomy and cystoscopy. SURGEON: Bala Thakur MD TURBINE ASSEMBLER: Curt Aldana DO ANESTHESIA: Mitesh Kee MD ANESTHETIC: General via endotracheal tube. MATERIAL TO PATHOLOGY: Uterus and tubes. IV FLUIDS: 600 mL. ESTIMATED BLOOD LOSS: 75 mL URINE OUTPUT: 75 mL. FINDINGS: Upon entering the abdominal cavity and inspection, there was evidence of pelvic endometriosis on the left hand side, back in the cul-de-sac, as well as the posterior leaf of the broad ligament. Upon performing the hysterectomy, there was evidence of dense adhesions on the lower uterine segment. This is compatible with the fact that she had 2 previous sections. The tubes and ovaries appeared to be free of disease. The appendix and gallbladder also appeared to be normal. DESCRIPTION OF PROCEDURE: Following adequate endotracheal anesthesia, the patient was placed in dorsal lithotomy position in [facility]. At this point, she was prepped and draped in the usual fashion. A timeout was performed at which concerns were addressed. A speculum was placed in the vagina. The cervix was visualized, grasped with a single-tooth tenaculum. Uterus was then sounded to 9 cm and then progressively dilated up to size 8 mm. A medium VCare was then inserted into the uterus. The cup was placed as high in the fornix as possible. The blue cup was slid down. Prior to this, she had 5 mL of 0.25% Marcaine injected in both uterosacral ligaments. At this point, the flanging machine operator's gloves were changed and then a stab wound was made in the subumbilical region with a #15 blade following local anesthesia with 0.25% Marcaine with epinephrine. A 5 mm trocar and sheath were placed under direct visualization. There was no evidence of any injury at site of insertion. Two additional ports were placed, both in the left and right lower quadrants. These were both done following local anesthesia with 0.25% Marcaine with epinephrine and then a skin incision with a #15 blade. Both were placed under direct visualization. At this point, the pelvis was inspected and the findings previously mentioned. The right fallopian tube was then grasped and then the mesosalpinx was transected and cauterized utilizing the LigaSure. This was carried all the way to the cornua. At this point, the round ligament as well as uteroovarian ligament were cauterized and transected doubly. The anterior leaf of the broad ligament was then cauterized, transected and then opened, and the anterior leaf of the broad ligament was cauterized and transected with the LigaSure all the way down to the internal os. Then, traversing the lower uterine segment, the peritoneum was tented and then brought free. The posterior leaf of the broad ligament was cauterized and transected with LigaSure. This was carried all the way down to the uterine vessels on the right hand side. These were once again inspected, cauterized and transected. The ureters, which had previously been identified, were noted to be out of the operative field. This was carried down along to the cervix. At this point, the contralateral side was treated in identical fashion. Dr. Aldana transected the mesosalpinx with the LigaSure, as well as the round ligament and the uteroovarian ligament. The broad ligament was then cauterized and transected, and then the anterior leaf was divided and this was carried down all the way to the previously developed bladder flap. The posterior leaf of the broad ligament was likewise cauterized and transected. There was some difficulty dissecting the bladder off the lower uterine segment, as she had 2 previous sections. Eventually, this was accomplished, and this was carried as close to the uterus as possible to decrease any risk of injury to the bladder. At this point, the cup of the VCare was easily palpated. A Harmonic scalpel was then utilized to open the vagina. Then, the cervix was then amputated from the apex of the vagina. Care was taken to carry this as close to the cervix as possible to minimize the risk of vaginal foreshortening. Following total detachment of the cervix from the apex of the vagina, the cervix was brought into the vagina. The tubes were tucked along with it. At this point, there was some bleeding noted on the right hand side. This was treated with electrocautery. An Endo stitch was then used to place sutures across the apex of the vagina utilizing a V-Loc suture. Care was taken to include the vessels on the right hand side. The apex of the vagina was closed in its entirety. There was evidence of good hemostasis, the cul-de-sac was irrigated free of any clot and there was no bleeding noted. At this point, attention was turned to the vagina. The uterus was removed. A cystoscopy was then performed, in which both ureters showed evidence of the efflux of the urine. The patient had taken Pyridium prior to the procedure and this enhanced and aided in this identification. The laparoscopic sites were all closed using 4-0 Monocryl subcuticular and then treated with Dermabond. The patient tolerated the procedure well and was taken to recovery in stable condition. Sponge and needle counts were correct. TD: 11/03/2018 12:44 NURIS
[2018-11-03] MEDS ORDERED: DOCUSATE SODIUM 100 MG CAPSULE PO SCH (21:00)
== END 2018-11-03 06:02 | disposition home or self-care (01) ==
LOC: SDS 06:01
PROVIDERS: ATTEND Obstetrics & Gynecology
PROC: 0UT7FZZ Resection of Bilateral Fallopian Tubes, Via Natural or Artificial Opening With Percutaneous Endoscopic Assistance (ICD-10-PCS; 2018-11-03)
PROC: 0UT9FZZ Resection of Uterus, Via Natural or Artificial Opening With Percutaneous Endoscopic Assistance (ICD-10-PCS; principal; 2018-11-03 07:30)
DX: N92.4 Excessive bleeding in the premenopausal period (principal); N94.6 Dysmenorrhea, unspecified; N80.3 Endometriosis of pelvic peritoneum; N99.4 Postprocedural pelvic peritoneal adhesions; G43.909 Migraine, unspecified, not intractable, without status migrainosus; G89.29 Other chronic pain; M54.9 Dorsalgia, unspecified; F17.210 Nicotine dependence, cigarettes, uncomplicated; F41.0 Panic disorder [episodic paroxysmal anxiety]; F32.9 Major depressive disorder, single episode, unspecified; R26.81 Unsteadiness on feet; M79.7 Fibromyalgia; R01.1 Cardiac murmur, unspecified
CPT/HCPCS: 58552; A9270; J0690; J7120

== ENCOUNTER 2019-01-03 08:53 | Emergency (ER) | payer MEDICAID ==
--- NOTE | 2019-01-03 11:13 | ED Physician Documentation ---
PD HPI FEMALE - Stated complaint Stated Complaint: L SIDE ABD PX - Chief complaint Chief Complaint: General - History obtained from History obtained from: Patient - History of Present Illness Timing - onset: Today Timing - duration: Days Timing - details: Abrupt onset, Still present, Constant Associated symptoms: Abdominal pain, Pelvic pain. No: Fever, Back pain, Vaginal bleeding (had hyst in October due to DUB and endometriosis. healing well. Ovaries left in.), Vaginal discharge, Genital sore/lesion Contributing factors: Hysterectomy (1 1/2 months ago, with good healing.). No: , Exposed to STD Similar symptoms before: Diagnosis (ovarian cyst pain and ruptures, has had several times in the past.) Review of Systems Constitutional: denies: Fever, Chills Nose: denies: Rhinorrhea / runny nose, Congestion Throat: denies: Sore throat Respiratory: denies: Cough GI: reports: Abdominal Pain (left lower abd), Nausea. 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 : None HEENT: None Psych: None Musculoskeletal: Chronic back pain Derm: None - Past Surgical History Past Surgical History: Yes /TOURIST CABIN KEEPER: section, Tubal ligation - Present Medications Home Medications: Ambulatory Orders Medication Instructions Recorded Confirmed Cyclobenzaprine [Flexeril] 10 mg PO TID PRN 02/10/17 11/03/18 Trazodone HCl 100 mg PO QPM 02/10/17 11/02/18 Amitriptyline HCl 25 mg PO QPM 07/28/18 11/02/18 Oxycodone HCl/Acetaminophen 1 - 2 each PO Q6H PRN #14 tablet 10/26/18 11/02/18 [Percocet 5-325 mg Tablet] Naproxen 500 mg PO BID #20 tablet 01/03/19 Oxycodone HCl/Acetaminophen 1 each PO Q6H PRN #20 tablet 01/03/19 [Percocet 5-325 mg Tablet] - Allergies Allergies/Adverse Reactions: Allergies Allergy/AdvReac Type Severity Reaction Status Date / Time hydrocodone Allergy Rash, Verified 01/03/19 09:03 itching - Social History Does the pt smoke?: Yes Smoking Status: Current every day smoker Does the pt drink ETOH?: No Does the pt have substance abuse?: No - Immunizations Immunizations are current?: Yes - POLST Patient has POLST: No PD ED PE NORMAL - Vitals Vital signs reviewed: Yes - General General: Alert and oriented X 3, No acute distress, Well developed/nourished - Rectal Rectal: Deferred - Back Back: No CVA TTP - Derm Derm: Normal color, Warm and dry - Extremities Extremities: No deformity, No tenderness to palpate - Neuro Neuro: Alert and oriented X 3, No motor deficit, Normal speech Results - Vitals Vitals: Vital Signs - 24 hr 01/03/19 01/03/19 01/03/19 09:03 11:49 12:14 Temperature 36.9 C 36.8 C Heart Rate 66 70 78 Respiratory 15 16 16 Rate Blood Pressure 115/62 113/54 L 116/54 L O2 Saturation 100 98 98 Oxygen O2 Source Room air - Labs Labs: Laboratory Tests 01/03/19 11:15 Urine Color YELLOW Urine Clarity CLEAR Urine pH 7.0 Ur Specific [place] 1.020 Urine Protein NEGATIVE Urine Glucose (UA) NEGATIVE Urine Ketones NEGATIVE Urine Occult Blood NEGATIVE Urine Nitrite NEGATIVE Urine Bilirubin NEGATIVE Urine Urobilinogen 0.2 (NORMAL) Ur Leukocyte Esterase NEGATIVE Ur Microscopic Review NOT INDICATED Urine Culture Comments NOT INDICATED PD MEDICAL DECISION MAKING - ED course Complexity details: considered differential (has had pain similarly from cysts/ovary in the past. Not peritonal abd exam, so reasonable to go with ovarian pain dx. ), d/w patient Departure - Departure Disposition: 01 Home, Self Care Clinical Impression: Left lower quadrant abdominal pain, Pain of ovary Condition: Stable Record reviewed to determine appropriate education?: Yes Instructions: ED Abdominal Pain Unkn Cause Follow-Up: Carter Finney PA-C [Primary Care Provider] - Prescriptions: Naproxen 500 mg PO BID #20 tablet Oxycodone HCl/Acetaminophen [Percocet 5-325 mg Tablet] 1 each PO Q6H PRN #20 tablet PRN Reason: pain Comments: Stay well-hydrated. Naproxen anti-inflammatory twice daily for 7 to 10 days. Add Tylenol and/or Percocet if needed for pains. Recheck if not improving well over the next few days. Return if worsening or consistent pain, fevers, more generalized pain or other concerns. Discharge Date/Time: 01/03/19 12:18
[2019-01-03] MEDS ORDERED: KETOROLAC 30 MG/ML VIAL IM STA (11:28)
[2019-01-03] MEDS ORDERED: oxyCODONE 5 MG TABLET PO STA (11:28)
[2019-01-03] MEDS ORDERED: ACETAMINOPHEN 325 MG TABLET PO STA (11:28)
[2019-01-03 11:39] LABS: BILIRUBIN,URINE NEGATIVE (NEGATIVE); GLUCOSE, URINE (UA) NEGATIVE (NEGATIVE); KETONES,URINE (UA) NEGATIVE (NEGATIVE); LEUKOCYTE ESTERASE, URINE NEGATIVE (NEGATIVE); NITRITE,URINE NEGATIVE (NEGATIVE); OCCULT BLOOD,URINE NEGATIVE (NEGATIVE); PROTEIN,URINE NEGATIVE (NEGATIVE); UROBILINOGEN,URINE 0.2 (NORMAL) E.U./dL (NORMAL)
[2019-01-03 11:52] LABS: CLARITY,URINE CLEAR (CLEAR)
[2019-01-03 12:15] VITALS: BP 116/54
== END 2019-01-03 12:18 | disposition home or self-care (01) ==
LOC: ED 08:53
DX: N94.89 Other specified conditions associated with female genital organs and menstrual cycle (principal); R10.32 Left lower quadrant pain; R11.0 Nausea; Z90.710 Acquired absence of both cervix and uterus; F17.200 Nicotine dependence, unspecified, uncomplicated
CPT/HCPCS: 81003; 96372; 99283; A9270; 81001; 87086

== ENCOUNTER 2019-03-15 12:01 | Outpatient (CLI) | payer MEDICAID ==
--- NOTE | 2019-03-16 01:40 | Ultrasound Report ---
Reason: CHRONIC FEMALE PELVIC PAIN Procedure Date: 03/15/2019 Accession Number: [id number] / [id number] Procedure: US - Pelvic w/Transvaginal CPT Code: Final Report FULL RESULT: EXAM: PELVIC ULTRASOUND EXAM DATE: 03/15/2019 01:47 PM. CLINICAL HISTORY: CHRONIC FEMALE PELVIC PAIN. COMPARISON: PELVIC W/TRANSVAGINAL 02/10/2018 4:06 PM. TECHNIQUE: Realtime transabdominal pelvic scan performed to identify the uterus and adnexa and as an overview of other pelvic structures, followed by transvaginal scan to provide greater detail of the uterus and adnexa, with static image documentation. FINDINGS: Status post hysterectomy. Right Ovary: 3.6 x 2.6 x 2.7 cm, volume 13.6 cc. Normal echotexture and blood flow. Complex cyst measuring 1.8 cm with peripheral vascularity. Left Ovary: 3.3 x 2.2 x 3.1 cm, volume 11.8 cc. Normal echotexture and blood flow. Free Fluid: None. Other: None. IMPRESSION: 1.8 cm right ovarian complex cyst, probably a hemorrhagic corpus luteum. Follow-up ultrasound is recommended in 6 weeks. RADIA
== END 2019-03-15 12:02 | disposition home or self-care (01) ==
LOC: DI 12:01
PROVIDERS: ATTEND Obstetrics & Gynecology
DX: N83.291 Other ovarian cyst, right side (principal)
CPT/HCPCS: 76830; 76856

== ENCOUNTER 2019-04-05 16:19 | Outpatient (CLI) | payer MEDICAID ==
[2019-04-05 16:33] LABS: BASOPHILS # (AUTO) 0.1 10^3/uL (0.0-0.1); BASOPHILS % (AUTO) 0.7 %; EOSINOPHILS # (AUTO) 0.4 10^3/uL (0.0-0.7); EOSINOPHILS % (AUTO) 5.1 %; HGB - HEMOGLOBIN 13.3 g/dL (12.0-16.0); LYMPHOCYTES # (AUTO) 2.9 10^3/uL (1.5-3.5); LYMPHOCYTES % (AUTO) 33.7 %; MEAN CORPUSCULAR HEMOGLOBIN 29.1 pg (27.0-31.0); MEAN CORPUSCULAR HGB CONC 32.9 g/dL (32.0-36.0); MEAN CORPUSCULAR VOLUME 88.4 fL (81.0-99.0); MEAN PLATELET VOLUME 11.1 fL (7.9-10.8); MONOCYTES # (AUTO) 0.5 10^3/uL (0.0-1.0); MONOCYTES % (AUTO) 5.7 %; NEUTROPHILS # (AUTO) 4.7 10^3/uL (1.5-6.6); NEUTROPHILS % (AUTO) 54.5 %; PLT - PLATELET COUNT 217 10^3/uL (130-450); RED BLOOD COUNT 4.57 10^6/uL (4.20-5.40); RED CELL DISTRIBUTION WIDTH 11.9 % (12.0-15.0); WHITE BLOOD COUNT 8.7 x10^3/uL (4.8-10.8)
[2019-04-05 16:53] LABS: ALBUMIN 4.8 g/dL (3.2-5.5); ALBUMIN/GLOBULIN RATIO 1.8 (1.0-2.2); ALKALINE PHOSPHATASE 61 IU/L (42-121); ALT ALANINE AMINOTRANSFERASE 24 IU/L (10-60); AST ASPARTATE AMINOTRANSFERASE 25 IU/L (10-42); BILIRUBIN,TOTAL 0.8 mg/dL (0.2-1.0); BUN - BLOOD UREA NITROGEN 15 mg/dL (6-20); CALCIUM 9.5 mg/dL (8.5-10.3); CARBON DIOXIDE - CO2 27 mmol/L (21-32); CHLORIDE 104 mmol/L (101-111); CREATININE 0.7 mg/dL (0.4-1.0); GFR - MDRD 100 (>89); GLUCOSE 93 mg/dL (70-100); SODIUM 138 mmol/L (135-145); TOTAL PROTEIN 7.4 g/dL (6.7-8.2)
[2019-04-05 17:03] LABS: CRP - C-REACTIVE PROTEIN < 1.0 mg/dL (0-1.0)
== END 2019-04-05 16:20 | disposition home or self-care (01) ==
LOC: LAB 16:19
PROVIDERS: ATTEND Surgery
DX: N64.4 Mastodynia (principal)
CPT/HCPCS: 36415; 80053; 84443; 85025; 85651; 86140

== ENCOUNTER 2019-04-08 12:37 | Outpatient (CLI) | payer MEDICAID ==
--- NOTE | 2019-04-08 14:23 | XRAY Report ---
Reason: MASTODYNIA BILATERAL Procedure Date: 04/08/2019 Accession Number: [id number] / [id number] Procedure: XR - Shoulder 2 View BILAT CPT Code: Final Report FULL RESULT: Bilateral Shoulder Radiography EXAM DATE: 04/08/2019 12:42 PM. CLINICAL HISTORY: MASTODYNIA BILATERAL. COMPARISON: None. TECHNIQUE: 2 views each. FINDINGS: Right: Bones: Normal. No fracture or bone lesion. Joints: The glenohumeral and acromioclavicular joints are normal. Soft tissues: The visualized hemithorax is unremarkable. No soft tissue swelling. Left: Bones: Normal. No fracture or bone lesion. Joints: The glenohumeral and acromioclavicular joints are normal. Soft tissues: The visualized hemithorax is unremarkable. No soft tissue swelling. IMPRESSION: Normal bilateral shoulder radiography. RADIA
--- NOTE | 2019-04-08 17:04 | Ultrasound Report ---
Reason: BILATERAL MASTODYNIA Procedure Date: 04/08/2019 Accession Number: [id number] / [id number] Procedure: US - Axilla CPT Code: Final Report FULL RESULT: EXAM: RIGHT/LEFT UPPER EXTREMITY ULTRASOUND - LIMITED EXAM DATE: 04/08/2019 02:19 PM. CLINICAL HISTORY: Bilateral mastodynia. COMPARISON: None. TECHNIQUE: Real-time scanning of both axillae was performed with static images obtained. FINDINGS: Normal bilateral fat pads. No fluid collections, solid masses or adenopathy. IMPRESSION: Normal examination. No sonographic explanation for axillary pain. RADIA
--- NOTE | 2019-04-14 10:19 | Ultrasound Report ---
Reason: BILATERAL MASTODYNIA Procedure Date: 04/08/2019 Accession Number: [id number] / [id number] Procedure: US - Axilla CPT Code: Final Report FULL RESULT: EXAM: RIGHT/LEFT UPPER EXTREMITY ULTRASOUND - LIMITED EXAM DATE: 04/08/2019 02:19 PM. CLINICAL HISTORY: Bilateral mastodynia. COMPARISON: None. TECHNIQUE: Real-time scanning of both axillae was performed with static images obtained. FINDINGS: Normal bilateral fat pads. No fluid collections, solid masses or adenopathy. IMPRESSION: Normal examination. No sonographic explanation for axillary pain. RADIA
== END 2019-04-08 12:38 | disposition home or self-care (01) ==
LOC: DI 12:37
PROVIDERS: ATTEND Surgery
DX: N64.4 Mastodynia (principal)
CPT/HCPCS: 76882

== ENCOUNTER 2019-06-06 12:29 | Day surgery (SDC) | payer MEDICAID ==
[~2019-06-06 12:29] MED LIST: CEFAZOLIN SODIUM IN 0.9 % NACL 2 GM/100 ML BAG IV ONE
[2019-06-06] MEDS ORDERED: LACTATED RINGERS 1,000 ML IV ONE ×2 (12:57→16:32)
--- NOTE | 2019-06-06 13:46 | ANESTHESIA ---
Pre-Anesthesia VS, & Labs - Diagnosis Palpable right breast mass - Procedure R excisional breast biopsy Vital Signs: Temp Pulse Resp BP Pulse Ox 36.3 C L 57 L 18 110/55 L 100 06/06/19 12:35 06/06/19 12:35 06/06/19 12:35 06/06/19 12:35 06/06/19 12:35 Height 5 ft 7 in Weight (kg) 66.1 kg Body Mass Index 21.7 - NPO >8 hours - Is Patient ?: No Home Medications and Allergies Home Medications: Ambulatory Orders Iorodal 50 mg PO DAILY 06/02/19 Trazodone HCl 100 mg PO QPM 02/10/17 Iorodal 50 mg PO DAILY 06/02/19 Allergies/Adverse Reactions: Allergies Allergy/AdvReac Type Severity Reaction Status Date / Time hydrocodone Allergy Itching Verified 06/02/19 15:18 Anes History & Medical History - Anesthetic History Anesthesia Complications: reports: No previous complications Family history of Anesthesia Complications: Denies Family history of Malignant Hyperthermia: Denies - Medical History Cardiovascular: reports: None Pulmonary: reports: None Gastrointestinal: reports: None Urinary: reports: None Neuro: reports: Headaches, Migraines Musculoskeletal: reports: Chronic back pain Endocrine/Autoimmune: reports: None Blood Disorders: reports: None Skin: reports: Eczema Smoking Status: Current every day smoker - Surgical History Gynecologic: section, Tubal ligation Exam General: Alert, Oriented x3, Cooperative Dental: WNL Mouth Openin Fingerbreadth Neck Mobility: Normal Mallampati classification: II Thyromental Distance: 4-6 cm Respiratory: Lungs clear, Normal breath sounds, No respiratory distress Cardiovascular: Regular rate Neurological: Normal speech Mental/Cognitive Status: Alert/Oriented X3, Normal for patient Cognitive Status: Within normal limits Plan Anesthesia Type: General Consent for Procedure(s) Verified and Reviewed: Yes Code Status: Attempt Resuscitation ASA classification: 2-Mild systemic disease Is this case an emergency?: No
[2019-06-06] MEDS ORDERED: LIDOCAINE 1%-EPI 1:100000 20 ML MDV ONE (15:03)
[2019-06-06] MEDS ORDERED: BUPIVACAINE 0.5% PF 10 ML VIAL ONE (15:04)
[2019-06-06] MEDS ORDERED: LIDOCAINE-MPF 2% 5 ML VIAL IM ONE (15:38)
[2019-06-06] MEDS ORDERED: fentaNYL 100 MCG/2 ML VIAL IVP ONE (15:38)
[2019-06-06] MEDS ORDERED: PROPOFOL 200 MG/20 ML VIAL IVP ONE (15:38)
[2019-06-06] MEDS ORDERED: KETOROLAC 30 MG/ML VIAL IVP ONE (15:38)
[2019-06-06] MEDS ORDERED: ONDANSETRON 4 MG/2 ML VIAL IVP ONE (15:38)
[2019-06-06] MEDS ORDERED: MIDAZOLAM 2 MG/2 ML VIAL IVP ONE (15:38)
[2019-06-06] MEDS ORDERED: DEXAMETHASONE 4 MG/ML VIAL IVP ONE (15:38)
[2019-06-06] MEDS ORDERED: BUPIVACAINE 0.5% PF 30 ML VIAL SUBQ ONE (15:59)
[2019-06-06] MEDS ORDERED: LIDOCAINE 1%-EPI 1:100000 30 ML MDV SUBQ ONE (15:59)
--- NOTE | 2019-06-06 16:33 | OPERATIVE REPORT ---
Operative Report - General Procedure Date: 06/06/19 Planned Procedure: Right breast excisional biopsy Pre-Op Diagnosis: Painful right breast mass Procedure Performed: Excisional biopsy of the right breast Post Op Diagnosis: Same - Procedure Note Primary Surgeon: Shasta Anesthesia Provider: FATOUMATA Phillip Anesthesia Technique: General LMA, Local Pathology: 1. superior mass - marked for orientation 2. inferior mass - marked for orientation Estimated Blood Loss (mL): 5 Findings: Two partially circumscribed lumpy masses - one more superior than the other Complications: None apparent - Other Other Information/Narrative: After obtaining informed consent, the patient is brought to the operating room and placed in the supine position on the operating table. Following successful induction of general anesthesia, appropriate padding of all bony prominences, and placement of appropriate monitors, the right chest and axilla were prepped and draped in the standard surgical fashion. A timeout was held per scope protocol. All elements of the surgical safety checklist were followed before, during, and after the procedure. We began the procedure by infiltrating mixture of local anesthetics in the lateral aspect of the right breast. An incision was created here and carried down through the skin and subcutaneous tissue. The palpable mass was grasped superiorly and dissected free from surrounding tissue. The more lateral aspect of the mass was fairly well-circumscribed but medially it did blend into more normal-appearing breast tissue. This was removed sharply, marked for orientation, and submitted as a specimen. The more inferior mass was more lobular was several small marble like palpable structures. This was grasped in the same manner and removed sharply from the surrounding tissue. Once again, it was marked for orientation and submitted in formalin. The defect was then checked for hemostasis. It was irrigated with warm water and aspirated free of all fluid and particulate matter. When we were satisfied with hemostasis, the incision was closed in 2 layers with Vicryl and Monocryl suture and Dermabond was applied to the skin. All sponge, needle, and instrument counts were correct at the conclusion of the case. The patient was allowed to wake from anesthesia without difficulty and taken to the postanesthesia care unit in good condition.
[2019-06-06] MEDS ORDERED: ONDANSETRON 4 MG/2 ML VIAL IVP PRN (16:36)
[2019-06-06] MEDS ORDERED: IBUPROFEN 600 MG TABLET PO PRN (16:36)
[2019-06-06] MEDS ORDERED: ACETAMINOPHEN 325 MG TABLET PO PRN (16:36)
[2019-06-06] MEDS ORDERED: oxyCODONE 5 MG TABLET PO PRN (16:36)
[2019-06-06 17:54] VITALS: BP 110/70
== END 2019-06-06 12:30 | disposition home or self-care (01) ==
LOC: SDS 12:29
PROVIDERS: ATTEND Surgery
PROC: 0HBT0ZZ Excision of Right Breast, Open Approach (ICD-10-PCS; principal; 2019-06-06 13:15)
DX: N63.11 Unspecified lump in the right breast, upper outer quadrant (principal); N63.13 Unspecified lump in the right breast, lower outer quadrant; F17.210 Nicotine dependence, cigarettes, uncomplicated; M62.81 Muscle weakness (generalized); M79.7 Fibromyalgia
CPT/HCPCS: 19120; J0690; J7120

== ENCOUNTER 2019-08-13 18:49 | Emergency (ER) | payer MEDICAID ==
[2019-08-13 19:11] VITALS: BP 138/65
[2019-08-13] MEDS ORDERED: oxyCODONE 5 MG TABLET PO STA (19:36)
[2019-08-13] MEDS ORDERED: methocarbamoL 500 MG TABLET PO STA (19:36)
--- NOTE | 2019-08-13 19:54 | ED Physician Documentation ---
History of Present Illness - Stated complaint Stated Complaint: NECK PX - Chief complaint Chief Complaint: Trauma Hd/Nk - History obtained from History obtained from: Patient - History of Present Illness Timing: Today Pain level max: 8 Pain level now: 8 - Additonal information Additional information: Patient states L sided neck pain after wrestling. Worse with movement and better with rest. Took flexeril without relief. No numbness or tingling. No loss of consciousness. Review of Systems Ten Systems: 10 systems reviewed and negative Constitutional: denies: Fever, Chills Throat: denies: Sore throat Cardiac: denies: Chest pain / pressure Respiratory: denies: Cough GI: denies: Nausea, Vomiting, Diarrhea : denies: Dysuria, Frequency, Hesitancy, Now EGA Skin: denies: Rash Musculoskeletal: denies: Back pain Neurologic: denies: Focal weakness, Numbness, Headache PD PAST MEDICAL HISTORY - Past Medical History Cardiovascular: None Respiratory: None Neuro: Headaches, Migraines Endocrine/Autoimmune: None GI: None ONCOLOGY PHYSICIAN ASSISTANT: None : None HEENT: None Psych: Depression, Anxiety, Panic attacks, Other Musculoskeletal: Chronic back pain Derm: Eczema - Past Surgical History Past Surgical History: 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: section, Tubal ligation - Present Medications Home Medications: Ambulatory Orders Medication Instructions Recorded Confirmed Trazodone HCl 100 mg PO QPM 02/10/17 06/06/19 Iorodal 50 mg PO DAILY 06/02/19 oxyCODONE [Roxicodone] 5 mg PO Q6H PRN #20 tablet 06/06/19 Oxycodone HCl 5 - 10 mg PO Q6H PRN #7 tablet 08/13/19 methocarbamoL [Robaxin] 500 mg PO Q6H PRN #10 tablet 08/13/19 - Allergies Allergies/Adverse Reactions: Allergies Allergy/AdvReac Type Severity Reaction Status Date / Time hydrocodone Allergy Itching Verified 06/02/19 15:18 - Social History Does the pt smoke?: Yes Smoking Status: Current every day smoker Does the pt drink ETOH?: No Does the pt have substance abuse?: No - Immunizations Immunizations are current?: Yes - POLST Patient has POLST: No PD ED PE NORMAL - Vitals Vital signs reviewed: Yes - General General: Alert and oriented X 3, No acute distress - HEENT HEENT: PERRL, Moist mucous membranes - Neck Neck: Supple, no meningeal sign, No bony TTP (no midline TTP. no step off or deformity. Paraspinal spasm L>R. NVI. ), No JVD, No bruit - Cardiac Cardiac: RRR - Respiratory Respiratory: No respiratory distress, Clear bilaterally - Derm Derm: Warm and dry - Neuro Neuro: Alert and oriented X 3 - Psych Psych: Normal mood, Normal affect Results - Vitals Vitals: Vital Signs - 24 hr 08/13/19 19:08 Temperature 36.7 C Heart Rate 90 Respiratory 16 Rate Blood Pressure 138/65 H O2 Saturation 99 Oxygen O2 Source Room air PD MEDICAL DECISION MAKING - ED course Complexity details: reviewed results, re-evaluated patient, considered differential, d/w patient ED course: 28-year-old female with cervical spine muscle spasm. No evidence of fracture or dislocation. No neurological deficits. We will place on pain medication muscle relaxants for home. Patient counseled regarding signs and symptoms for which I believe and urgent re-evaluation would be necessary. Patient with good understanding of and agreement to plan and is comfortable going home at this time This document was made in part using voice recognition software. While efforts are made to proofread this document, sound alike and grammatical errors may occur. No evidence of vascular injury or infectious etiology Departure - Departure Disposition: 01 Home, Self Care Clinical Impression: Neck muscle spasm Condition: Good Instructions: ED Spasm Neck No Injury Follow-Up: Carter Finney PA-C [Primary Care Provider] - Within 1 week Prescriptions: methocarbamoL [Robaxin] 500 mg PO Q6H PRN #10 tablet PRN Reason: neck pain Oxycodone HCl 5 - 10 mg PO Q6H PRN #7 tablet PRN Reason: pain Comments: Return if you worsen. Follow-up with your doctor for further care. This should improve over the next 24 to 48 hours. Continue to gently stretch your neck. Do not drink alcohol or drive while on narcotic pain medicine. Note that many narcotic pain relievers also contain tylenol/acetaminophen. Please ensure that your total dose of acetaminophen from all sources does not exceed 3 grams (3000mg) per day. You may constipated on this medication, take a stool softener such as "Colace" twice a day while you are on it. Also recommend a [id number] laxative such as senna or MiraLAX any day that you do not have a bowel movement. If you received narcotic pain medication in the emergency department, do not drive or operate machinery for the next 24 hours. Discharge Date/Time: 08/13/19 20:02
== END 2019-08-13 20:02 | disposition home or self-care (01) ==
LOC: ED 18:49
DX: M62.838 Other muscle spasm (principal); M54.2 Cervicalgia; F17.200 Nicotine dependence, unspecified, uncomplicated
CPT/HCPCS: 99282; 99284; A9270

== ENCOUNTER 2021-01-08 08:55 | Emergency (ER) | payer MEDICAID ==
--- NOTE | 2021-01-08 09:10 | ED Physician Documentation ---
PD HPI CHEST PAIN - Stated complaint Stated Complaint: CHEST PX/L ARM PX - Chief complaint Chief Complaint: Cardiac - History obtained from History obtained from: Patient - History of Present Illness Timing - onset: How many hours ago (5), Today Timing - onset during: Sleep (awakened from sleep with pleuritic left chest pain associated with feeling of pressure/aching to left shoulder.), Rest Timing - duration: Hours (5) Timing - details: Abrupt onset, Still present Quality: Aching, Sharp, Pain Location: Left chest Radiation: Left upper extremity Improved by: No: Rest Worsened by: Inspiration, Movement. No: Palpation Associated symptoms: Shortness of air, Feeling faint / dizzy. No: Nausea, Vomiting, Palpitations Similar symptoms before: No diagnosis (she states she has had similar brief pains over the past month or two, lasting just few minutes at a time. Each in same area and nonexertional. Has had just 3-4 episodes. 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 : None HEENT: None Psych: Depression, Anxiety, Panic attacks, Other Musculoskeletal: Chronic back pain Derm: Eczema - Past Surgical History Past Surgical History: Yes /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, Tubal ligation - Present Medications Home Medications: Ambulatory Orders Medication Instructions Recorded Confirmed Trazodone HCl 100 mg PO QPM 02/10/17 06/06/19 Iorodal 50 mg PO DAILY 06/02/19 oxyCODONE [Roxicodone] 5 mg PO Q6H PRN #20 tablet 06/06/19 Oxycodone HCl 5 - 10 mg PO Q6H PRN #7 tablet 08/13/19 methocarbamoL [Robaxin] 500 mg PO Q6H PRN #10 tablet 08/13/19 dexAMETHasone [Decadron] 4 mg PO DAILY #5 tablet 01/08/21 oxyCODONE [Roxicodone] 5 mg PO Q4-6H PRN #12 tablet 01/08/21 - Allergies Allergies/Adverse Reactions: Allergies Allergy/AdvReac Type Severity Reaction Status Date / Time hydrocodone Allergy Itching Verified 01/08/21 09:09 - Living Situation Living Situation: reports: With family Living Arrangement: reports: At home - Social History Does the pt smoke?: Yes Smoking Status: Current every day smoker Does the pt drink ETOH?: No Does the pt have substance abuse?: No - Family History Family history: reports: CAD. denies: Aortic aneursym, Aortic dissection - Immunizations Immunizations are current?: Yes - POLST Patient has POLST: No PD ED PE NORMAL - Vitals Vital signs reviewed: Yes - General General: Alert and oriented X 3, No acute distress, Well developed/nourished - HEENT HEENT: Moist mucous membranes, Pharynx benign - Neck Neck: Supple, no meningeal sign, No adenopathy - Cardiac Cardiac: RRR, No murmur - Respiratory Respiratory: Clear bilaterally, Other (mild left chestwall tenderness above/lateral to breast. No rash nor sores. ) - Abdomen Abdomen: Soft, Non tender - Back Back: No CVA TTP - Derm Derm: Normal color, Warm and dry, No rash - Extremities Extremities: Other (good color, pulses, movement in left hand/arm. ) - Neuro Neuro: Alert and oriented X 3, No motor deficit, Normal speech Results - Vitals Vitals: Vital Signs - 24 hr 01/08/21 01/08/21 01/08/21 09:04 09:13 09:40 Temperature 36.3 C L Heart Rate 66 73 65 Respiratory 15 16 18 Rate Blood Pressure 135/84 H 132/80 H 121/100 H O2 Saturation 99 96 100 01/08/21 10:56 Temperature Heart Rate 49 L Respiratory 12 Rate Blood Pressure 104/66 O2 Saturation 100 Oxygen O2 Source Room air - EKG (time done) 09:10 Rate: Rate (enter#) (71) Rhythm: NSR Romeo: Normal Intervals: Normal CT QRS: Normal Ischemia: Normal ST segments. No: ST elevation c/w ischemia, ST depression - Labs Labs: Laboratory Tests 01/08/21 01/08/21 01/08/21 09:43 09:43 09:43 WBC 6.0 RBC 4.97 Hgb 14.3 Hct 43.9 MCV 88.3 MCH 28.8 MCHC 32.6 RDW 11.9 L Plt Count 211 MPV 10.6 Neut # (Auto) 2.6 Lymph # (Auto) 2.7 [place] # (Auto) 0.3 Eos # (Auto) 0.3 Baso # (Auto) 0.0 Absolute Nucleated RBC 0.00 Nucleated RBC % 0.0 ESR Sodium 136 Potassium 4.0 Chloride 101 Carbon Dioxide 26 Anion Gap 9.0 BUN 14 Creatinine 0.8 Estimated GFR (MDRD) 85 L Glucose 69 L Calcium 9.5 Total Bilirubin 0.8 AST 24 ALT 19 Alkaline Phosphatase 66 Total Creatine Kinase 53 Troponin I High Sens 2.6 Total Protein 7.9 Albumin 4.7 Globulin 3.2 Albumin/Globulin Ratio 1.5 Lipase 25 01/08/21 09:43 WBC RBC Hgb Hct MCV MCH MCHC RDW Plt Count MPV Neut # (Auto) Lymph # (Auto) [place] # (Auto) Eos # (Auto) Baso # (Auto) Absolute Nucleated RBC Nucleated RBC % ESR 1 Sodium Potassium Chloride Carbon Dioxide Anion Gap BUN Creatinine Estimated GFR (MDRD) Glucose Calcium Total Bilirubin AST ALT Alkaline Phosphatase Total Creatine Kinase Troponin I High Sens Total Protein Albumin Globulin Albumin/Globulin Ratio Lipase - Rads (name of study) chest xray Radiology: Prelim report reviewed (no acute process), See rad report PD MEDICAL DECISION MAKING - ED course Complexity details: reviewed results (ECG, trop normal. CXR normal. PERC score 0. No recent trauma. No abd tenderness. ), re-evaluated patient, considered di fferential (abrupt pleuritic left chest pain. Can get ECG, CXR. Consider musculoskeletal if tests negative. Eval for PTX. PERC score 0. no recent trauma. h/o DX FM, but saw rheum so presume neg for lupus and rheumatoid. ), d/w patient Departure - Departure Disposition: 01 Home, Self Care Clinical Impression: Pleuritic chest pain Condition: Stable Record reviewed to determine appropriate education?: Yes Instructions: ED Chest Pain Pleurisy Prescriptions: dexAMETHasone [Decadron] 4 mg PO DAILY #5 tablet oxyCODONE [Roxicodone] 5 mg PO Q4-6H PRN #12 tablet PRN Reason: Pain Comments: Your EKG and chest x-ray and blood tests are normal. No signs of collapsed lung, fluid around the lung, pneumonia, heart attack, autoimmune inflammatory process. At this point I presume possibly some musculoskeletal pain in the chest wall or consider some inflammation around the lung called pleurisy. This can be related at times to viral type illnesses so see if you develop any symptoms of cough fever sore throat over the next few days. Otherwise can be just local inflammation and improve over the next few days. We can use Decadron steroid anti-inflammatory daily for the next 5 days. To that add Tylenol every 4-6 hours for pain and oxycodone in addition every 4-6 hours for worse pain. Recheck if not improved over the next 2 to 3 days and resolved by 3 to 5 days. Return if worse. I transmitted the scripts to [facility] in [place]. Forms: Activity restrictions Discharge Date/Time: 01/08/21 10:59
[2021-01-08] MEDS ORDERED: KETOROLAC 30 MG/ML VIAL IVP STA (09:29)
[2021-01-08 09:51] LABS: BASOPHILS % (AUTO) 0.7 %; EOSINOPHILS # (AUTO) 0.3 10^3/uL (0.0-0.7); EOSINOPHILS % (AUTO) 5.5 %; HCT - HEMATOCRIT 43.9 % (37.0-47.0); HGB - HEMOGLOBIN 14.3 g/dL (12.0-16.0); LYMPHOCYTES # (AUTO) 2.7 10^3/uL (1.5-3.5); LYMPHOCYTES % (AUTO) 45.4 %; MEAN CORPUSCULAR HEMOGLOBIN 28.8 pg (27.0-31.0); MEAN CORPUSCULAR HGB CONC 32.6 g/dL (32.0-36.0); MEAN CORPUSCULAR VOLUME 88.3 fL (81.0-99.0); MEAN PLATELET VOLUME 10.6 fL (7.9-10.8); MONOCYTES # (AUTO) 0.3 10^3/uL (0.0-1.0); MONOCYTES % (AUTO) 4.9 %; NEUTROPHILS # (AUTO) 2.6 10^3/uL (1.5-6.6); NEUTROPHILS % (AUTO) 43.3 %; PLT - PLATELET COUNT 211 10^3/uL (130-450); RED BLOOD COUNT 4.97 10^6/uL (4.20-5.40); RED CELL DISTRIBUTION WIDTH 11.9 % (12.0-15.0)
--- NOTE | 2021-01-08 10:02 | XRAY Report ---
PROCEDURE: Chest 1 View X-Ray INDICATIONS: Chest pain TECHNIQUE: One view of the chest was acquired. COMPARISON: 02/10/2017 FINDINGS: Surgical changes and devices: None. Lungs and pleura: No pleural effusions or pneumothorax. Lungs are clear. Mediastinum: Mediastinal contours appear normal. Heart size is normal. Bones and chest wall: No suspicious bony lesions. Overlying soft tissues appear unremarkable. IMPRESSION: No acute cardiopulmonary process demonstrated radiographically. Reviewed by: Mayito Sanchez MD on 01/08/2021 10:00 AM PDT Approved by: Mayito Sanchez MD on 01/08/2021 10:00 AM PDT Station ID: [id number]
[2021-01-08 10:18] LABS: ALBUMIN 4.7 g/dL (3.2-5.5); ALBUMIN/GLOBULIN RATIO 1.5 (1.0-2.2); BILIRUBIN,TOTAL 0.8 mg/dL (0.2-1.0); CALCIUM 9.5 mg/dL (8.5-10.3); CREATININE 0.8 mg/dL (0.4-1.0); TOTAL PROTEIN 7.9 g/dL (6.7-8.2)
[2021-01-08] MEDS ORDERED: ACETAMINOPHEN 325 MG TABLET PO STA (10:46)
[2021-01-08] MEDS ORDERED: DEXAMETHASONE 10 MG/ML VIAL IVP STA (10:46)
[2021-01-08 10:59] VITALS: BP 104/66
== END 2021-01-08 10:59 | disposition home or self-care (01) ==
LOC: ED 08:55
DX: R07.81 Pleurodynia (principal); F17.200 Nicotine dependence, unspecified, uncomplicated
CPT/HCPCS: 36415; 71045; 80053; 82550; 83690; 84484; 85025; 85651; 93005; 96374; 96375; 99284; A9270

== ENCOUNTER 2021-06-10 08:00 | Outpatient (CLI) | payer BC, MEDICAID ==
--- NOTE | 2021-06-10 14:59 | XRAY Report ---
PROCEDURE: Wrist 4 View LT INDICATIONS: SPRAIN OF L WRIST TECHNIQUE: 4 views of the wrist were acquired. COMPARISON: None FINDINGS: Bones: No fractures or dislocations. No suspicious bony lesions. Scaphoid view: Scaphoid is intact. Soft tissues: No suspicious soft tissue calcifications. IMPRESSION: Unremarkable radiographic examination of left wrist. Reviewed by: Vijay Pérez MD on 06/10/2021 2:58 PM PDT Approved by: Vijay Pérez MD on 06/10/2021 2:58 PM PDT Station ID: [id number]
== END 2021-06-10 23:59 | disposition home or self-care (01) ==
LOC: DI.N 08:00
PROVIDERS: ATTEND Nurse Practitioner
DX: S63.592A Other specified sprain of left wrist, initial encounter (principal)

== ENCOUNTER 2021-07-20 12:55 | Outpatient (CLI) | payer BC, MEDICAID ==
--- NOTE | 2021-07-20 14:49 | XRAY Report ---
PROCEDURE: Knee 4 View LT INDICATIONS: STRAIN OF LEFT LOWER LEG TECHNIQUE: 4 views of the left knee(s) were acquired. COMPARISON: None. FINDINGS: Bones: No fractures or dislocations. No suspicious bony lesions. Soft tissues: Moderate joint effusion. No suspicious soft tissue calcifications. IMPRESSION: Moderate joint effusion, otherwise unremarkable. Reviewed by: Manuel Jacobs MD on 07/20/2021 1:47 PM DANNY Approved by: Manuel Jacobs MD on 07/20/2021 1:47 PM AKGIFTY Station ID: [id number]
== END 2021-07-20 23:59 | disposition home or self-care (01) ==
LOC: DI.N 12:55
PROVIDERS: ATTEND Nurse Practitioner
DX: S86.912A Strain of unspecified muscle(s) and tendon(s) at lower leg level, left leg, initial encounter (principal); M25.462 Effusion, left knee

== ENCOUNTER 2021-11-22 08:00 | Outpatient (CLI) | payer BC, MEDICAID ==
--- NOTE | 2021-11-22 10:51 | XRAY Report ---
PROCEDURE: Chest 2 View X-Ray INDICATIONS: COUGH TECHNIQUE: 2 view(s) of the chest. COMPARISON: Chest x-ray 01/08/2021 FINDINGS: Surgical changes and devices: None. Lungs and pleura: No pleural effusions or pneumothorax. Lungs are clear. Mediastinum: Mediastinal contours are normal. Heart size is normal. Bones and chest wall: No suspicious bony abnormalities. Soft tissues appear unremarkable. IMPRESSION: No acute pulmonary process. Reviewed by: Stephanie Arizmendi MD on 11/22/2021 10:50 AM PDT Approved by: Stephanie Arizmendi MD on 11/22/2021 10:50 AM PDT Station ID: [id number]
[2021-11-22 12:33] LABS: BASOPHILS % (AUTO) 0.6 %; EOSINOPHILS # (AUTO) 0.4 10^3/uL (0.0-0.7); EOSINOPHILS % (AUTO) 5.8 %; HCT - HEMATOCRIT 42.8 % (37.0-47.0); HGB - HEMOGLOBIN 14.4 g/dL (12.0-16.0); LYMPHOCYTES # (AUTO) 2.3 10^3/uL (1.5-3.5); LYMPHOCYTES % (AUTO) 34.6 %; MEAN CORPUSCULAR HEMOGLOBIN 29.6 pg (27.0-31.0); MEAN CORPUSCULAR HGB CONC 33.6 g/dL (32.0-36.0); MEAN CORPUSCULAR VOLUME 87.9 fL (81.0-99.0); MEAN PLATELET VOLUME 11.8 fL (7.9-10.8); MONOCYTES # (AUTO) 0.4 10^3/uL (0.0-1.0); MONOCYTES % (AUTO) 5.3 %; NEUTROPHILS # (AUTO) 3.6 10^3/uL (1.5-6.6); NEUTROPHILS % (AUTO) 53.6 %; PLT - PLATELET COUNT 215 10^3/uL (130-450); RED BLOOD COUNT 4.87 10^6/uL (4.20-5.40); RED CELL DISTRIBUTION WIDTH 11.6 % (12.0-15.0); WHITE BLOOD COUNT 6.8 x10^3/uL (4.8-10.8)
[2021-11-22 13:09] LABS: ALBUMIN 4.6 g/dL (3.2-5.5); ALBUMIN/GLOBULIN RATIO 1.5 (1.0-2.2); ALKALINE PHOSPHATASE 46 IU/L (42-121); ALT ALANINE AMINOTRANSFERASE 16 IU/L (10-60); AST ASPARTATE AMINOTRANSFERASE 20 IU/L (10-42); BILIRUBIN,TOTAL 1.3 mg/dL (0.2-1.0); BUN - BLOOD UREA NITROGEN 11 mg/dL (6-20); CALCIUM 9.4 mg/dL (8.5-10.3); CARBON DIOXIDE - CO2 26 mmol/L (21-32); CHLORIDE 104 mmol/L (101-111); CREATININE 0.7 mg/dL (0.4-1.0); GFR - MDRD 99 (>89); GLUCOSE 79 mg/dL (70-100); LIPASE 25 U/L (22-51); POTASSIUM 3.8 mmol/L (3.5-5.0); SODIUM 136 mmol/L (135-145); TOTAL PROTEIN 7.6 g/dL (6.7-8.2)
[2021-11-22 13:10] LABS: ESTIMATED AVERAGE GLUCOSE 91 mg/dL (70-100); HEMOGLOBIN A1c% 4.8 % (4.27-6.07)
[2021-11-22 13:20] LABS: THYROID STIMULATING HORMONE 2.49 uIU/mL (0.34-5.60)
[2021-11-22 13:22] LABS: CRP - C-REACTIVE PROTEIN < 1.0 mg/dL (0-1.0)
== END 2021-11-22 23:59 | disposition home or self-care (01) ==
LOC: DI.N 08:00
PROVIDERS: ATTEND Registered Nurse
DX: R05.9 Cough, unspecified (principal); R10.31 Right lower quadrant pain; R11.2 Nausea with vomiting, unspecified
CPT/HCPCS: 36415; 80053; 83036; 83690; 84443; 85025; 86140

== ENCOUNTER 2022-02-20 08:00 | Outpatient (CLI) | payer BC, MEDICAID ==
[2022-02-20 12:12] LABS: BILIRUBIN,URINE NEGATIVE (NEGATIVE); GLUCOSE, URINE (UA) NEGATIVE (NEGATIVE); KETONES,URINE (UA) NEGATIVE (NEGATIVE); LEUKOCYTE ESTERASE, URINE NEGATIVE (NEGATIVE); NITRITE,URINE NEGATIVE (NEGATIVE); OCCULT BLOOD,URINE SMALL (NEGATIVE); PROTEIN,URINE NEGATIVE (NEGATIVE); UROBILINOGEN,URINE 0.2 (NORMAL) E.U./dL (NORMAL)
[2022-02-20 12:18] LABS: BACTERIA,URINE Few /HPF (None Seen); CLARITY,URINE CLEAR (CLEAR); SQUAMOUS EPITHELIAL CELL,UR MOD Squamous (<= Few); WBC,URINE 0-3 /HPF (0-5)
[2022-02-20 21:40] LABS: BACTERIAL VAGINOSIS DNA POSITIVE (NEGATIVE); CANDIDA GLABRATA DNA NEGATIVE (NEGATIVE); CANDIDA GROUP DNA NEGATIVE (NEGATIVE); CANDIDA KRUSEI DNA NEGATIVE (NEGATIVE); TRICHOMONAS VAGINALIS DNA NEGATIVE (NEGATIVE)
[2022-02-20 22:24] LABS: CHLAMYDIA TRACHOMATIS DNA NEGATIVE (NEGATIVE); NEISSERIA GONORRHOEAE DNA NEGATIVE (NEGATIVE)
== END 2022-02-20 23:59 | disposition home or self-care (01) ==
LOC: LAB.N 08:00
PROVIDERS: ATTEND Registered Nurse
DX: N30.01 Acute cystitis with hematuria (principal); R10.84 Generalized abdominal pain
CPT/HCPCS: 81001; 81514; 87086; 87491; 87591; 87661

== ENCOUNTER 2022-02-21 09:28 | Outpatient (CLI) | payer BC, MEDICAID ==
[2022-02-21 16:59] LABS: BASOPHILS % (AUTO) 0.6 %; EOSINOPHILS # (AUTO) 0.3 10^3/uL (0.0-0.7); EOSINOPHILS % (AUTO) 4.3 %; HGB - HEMOGLOBIN 13.6 g/dL (12.0-16.0); LYMPHOCYTES # (AUTO) 2.3 10^3/uL (1.5-3.5); LYMPHOCYTES % (AUTO) 31.9 %; MEAN CORPUSCULAR HEMOGLOBIN 29.6 pg (27.0-31.0); MEAN CORPUSCULAR HGB CONC 33.2 g/dL (32.0-36.0); MEAN CORPUSCULAR VOLUME 89.1 fL (81.0-99.0); MONOCYTES # (AUTO) 0.4 10^3/uL (0.0-1.0); MONOCYTES % (AUTO) 5.3 %; NEUTROPHILS # (AUTO) 4.1 10^3/uL (1.5-6.6); NEUTROPHILS % (AUTO) 57.6 %; PLT - PLATELET COUNT 210 10^3/uL (130-450); RED CELL DISTRIBUTION WIDTH 11.7 % (12.0-15.0); WHITE BLOOD COUNT 7.1 x10^3/uL (4.8-10.8)
[2022-02-21 17:01] LABS: BILIRUBIN,URINE NEGATIVE (NEGATIVE); GLUCOSE, URINE (UA) NEGATIVE (NEGATIVE); KETONES,URINE (UA) NEGATIVE (NEGATIVE); LEUKOCYTE ESTERASE, URINE NEGATIVE (NEGATIVE); NITRITE,URINE NEGATIVE (NEGATIVE); OCCULT BLOOD,URINE MODERATE (NEGATIVE); PROTEIN,URINE NEGATIVE (NEGATIVE); UROBILINOGEN,URINE 0.2 (NORMAL) E.U./dL (NORMAL)
[2022-02-21 17:02] LABS: CLARITY,URINE CLOUDY (CLEAR)
[2022-02-21 17:10] LABS: RHEUMATOID FACTOR NEGATIVE (Negative)
[2022-02-21 17:11] LABS: AMORPHOUS SEDIMENT,UR Marked /LPF; BACTERIA,URINE Rare /HPF (None Seen); SQUAMOUS EPITHELIAL CELL,UR MOD Squamous (<= Few); WBC,URINE 0-3 /HPF (0-5)
[2022-02-21 17:51] LABS: % IRON SATURATION 32 % (20-50); ALBUMIN 4.3 g/dL (3.2-5.5); ALBUMIN/GLOBULIN RATIO 1.4 (1.0-2.2); ALKALINE PHOSPHATASE 54 IU/L (42-121); ALT ALANINE AMINOTRANSFERASE 14 IU/L (10-60); AST ASPARTATE AMINOTRANSFERASE 18 IU/L (10-42); BILIRUBIN,TOTAL 1.1 mg/dL (0.2-1.0); BUN - BLOOD UREA NITROGEN 13 mg/dL (6-20); CALCIUM 9.4 mg/dL (8.5-10.3); CARBON DIOXIDE - CO2 22 mmol/L (21-32); CHLORIDE 104 mmol/L (101-111); CREATININE 0.8 mg/dL (0.4-1.0); GFR - MDRD 84 (>89); GLUCOSE 89 mg/dL (70-100); IRON 97 ug/dL (28-170); MAGNESIUM 1.8 mg/dL (1.7-2.8); POTASSIUM 3.9 mmol/L (3.5-5.0); SODIUM 134 mmol/L (135-145); TOTAL IRON BINDING CAPACITY 302 ug/dL (250-450); TOTAL PROTEIN 7.3 g/dL (6.7-8.2); TRANSFERRIN 216 mg/dL (192-382)
[2022-02-21 17:59] LABS: THYROID STIMULATING HORMONE 1.14 uIU/mL (0.34-5.60)
[2022-02-21 18:03] LABS: FREE T3 3.38 pg/mL (2.5-3.9)
[2022-02-21 18:08] LABS: FERRITIN 66.6 ng/mL (11.0-306.8)
[2022-02-21 18:09] LABS: PROLACTIN 12.82 ng/mL
[2022-02-21 18:10] LABS: FOLATE 20.32 ng/mL (5.90 - >24.8)
[2022-02-21 18:27] LABS: FOLLICLE STIMULATING HORMONE 18.31 mIU/mL
[2022-02-21 18:28] LABS: LUTEINIZING HORMONE 89.8 mIU/mL
[2022-02-21 18:35] LABS: CRP - C-REACTIVE PROTEIN < 1.0 mg/dL (0-1.0)
[2022-02-21 21:13] LABS: ESTIMATED AVERAGE GLUCOSE 91 mg/dL (70-100); HEMOGLOBIN A1c% 4.8 % (4.27-6.07)
[2022-02-22 04:07] LABS: VITAMIN D 25-HYDROXY 33.6 ng/mL (30.0-100.0)
[2022-02-22 07:07] LABS: PROGESTERONE 0.8 ng/mL (.)
[2022-02-24 12:08] LABS: ANTINUCLEAR ANTIBODIES IFA Negative (.)
== END 2022-02-21 09:29 | disposition home or self-care (01) ==
LOC: LAB.N 09:28
PROVIDERS: ATTEND Registered Nurse
DX: M79.7 Fibromyalgia (principal); F33.1 Major depressive disorder, recurrent, moderate; F43.12 Post-traumatic stress disorder, chronic; F41.9 Anxiety disorder, unspecified; R53.1 Weakness; G47.00 Insomnia, unspecified; G89.29 Other chronic pain; N30.11 Interstitial cystitis (chronic) with hematuria; R11.2 Nausea with vomiting, unspecified; R10.2 Pelvic and perineal pain; R10.84 Generalized abdominal pain
CPT/HCPCS: 36415; 80053; 81001; 81599; 82306; 82607; 82670; 82728; 82746; 83001; 83002; 83036; 83540; 83735; 84144; 84146; 84403; 84443; 84466; 84481; 85025; 85651; 86038; 86140; 86430; 87563

== ENCOUNTER 2022-02-24 08:36 | Outpatient (CLI) | payer BC, MEDICAID | END 2022-02-24 08:37 | disposition home or self-care (01) | LOC: LAB.N 08:36 | PROVIDERS: ATTEND Registered Nurse | DX: M79.7 Fibromyalgia (principal); R10.84 Generalized abdominal pain; R10.30 Lower abdominal pain, unspecified; R10.2 Pelvic and perineal pain; R94.7 Abnormal results of other endocrine function studies; N30.11 Interstitial cystitis (chronic) with hematuria; R11.2 Nausea with vomiting, unspecified; G47.00 Insomnia, unspecified; F33.1 Major depressive disorder, recurrent, moderate; F43.12 Post-traumatic stress disorder, chronic; F41.9 Anxiety disorder, unspecified; R53.1 Weakness; G89.29 Other chronic pain | CPT/HCPCS: 36415; 82533; 82670; 84144 ==

== ENCOUNTER 2022-02-25 15:51 | Outpatient (CLI) | payer BC, MEDICAID | END 2022-02-25 15:52 | disposition home or self-care (01) | LOC: LAB.N 15:51 | PROVIDERS: ATTEND Nurse Practitioner | DX: R31.9 Hematuria, unspecified (principal) | CPT/HCPCS: 87086 ==

== ENCOUNTER 2022-02-28 13:32 | Outpatient (CLI) | payer BC, MEDICAID ==
[2022-02-28 18:40] LABS: BILIRUBIN,DIRECT 0.1 mg/dL (0.1-0.5); CALCIUM 9.6 mg/dL (8.5-10.3); CREATININE 0.8 mg/dL (0.4-1.0); POTASSIUM 3.9 mmol/L (3.5-5.0)
[2022-03-01 07:09] LABS: PROGESTERONE 10.2 ng/mL (.)
== END 2022-02-28 13:33 | disposition home or self-care (01) ==
LOC: LAB.N 13:32
PROVIDERS: ATTEND Registered Nurse
DX: R53.83 Other fatigue (principal); R53.81 Other malaise; R94.7 Abnormal results of other endocrine function studies; N30.01 Acute cystitis with hematuria; R10.30 Lower abdominal pain, unspecified; R10.84 Generalized abdominal pain; R17 Unspecified jaundice
CPT/HCPCS: 36415; 80048; 82248; 82670; 84144

== ENCOUNTER 2022-03-11 09:19 | Outpatient (CLI) | payer BC, MEDICAID ==
[2022-03-11 13:23] LABS: CHOLESTEROL 129 mg/dL; HDL CHOLESTEROL 43 mg/dL; LDL CHOLESTEROL,CALCULATED 76 mg/dL; LDL/HDL RATIO 1.8 (<4.4); TRIGLYCERIDES 48 mg/dL; VLDL CHOLESTEROL 10 mg/dL
== END 2022-03-11 09:20 | disposition home or self-care (01) ==
LOC: LAB.N 09:19
PROVIDERS: ATTEND Registered Nurse
DX: M79.7 Fibromyalgia (principal); R53.83 Other fatigue; R53.81 Other malaise; R10.30 Lower abdominal pain, unspecified; R10.84 Generalized abdominal pain; N64.4 Mastodynia; N83.201 Unspecified ovarian cyst, right side
CPT/HCPCS: 36415; 80061; 83525; 83721; 84402

== ENCOUNTER 2022-04-01 08:01 | Outpatient (CLI) | payer BC, MEDICAID ==
--- NOTE | 2022-04-01 20:29 | Ultrasound Report ---
PROCEDURE: Pelvic Complete INDICATIONS: SUBRAPUBIC PAIN, HEMATURIA TECHNIQUE: Real-time transabdominal scanning was performed of the pelvic organs, with image documentation. COMPARISON: Pelvic ultrasound 12/23/2017 FINDINGS: Uterus: Removed. Ovaries: Right ovary measures 3.2 x 2.8 x 1.9 cm, volume 8.9 cc. Majority measures 2.5 x 1.9 x 2.1 c m, volume 5.2 cc. Ovaries are unremarkable. Other: No free pelvic fluid. IMPRESSION: Ovaries are unremarkable. Uterus has been removed. Reviewed by: Stephanie Arizmendi MD on 04/01/2022 8:27 PM PST Approved by: Stephanie Arizmendi MD on 04/01/2022 8:27 PM PST Station ID: [id number]
--- NOTE | 2022-04-02 08:52 | Ultrasound Report ---
PROCEDURE: Retroperitoneal INDICATIONS: SUBRAPUBIC PAIN, HEMATURIA TECHNIQUE: Real-time scanning was performed of the retroperitoneal organs, with image documentation. COMPARISON: Ultrasound abdomen, 08/05/2015. FINDINGS: Kidneys: Kidneys are normal in size. Right kidney measures 10.2 cm long; left kidney measures 10.4 cm long. Right renal cortical thickness is 1.4 cm; left renal cortical thickness is 1.4 cm. No piero d masses, hydronephrosis, or nephrolithiasis. Bladder: Pre-void bladder volume is 151.4 mL. Post-void residual is 13.3 mL. Pre-void images demon strate no intraluminal masses or stones. On pre-void images, both ureteral jets are noted with color Doppler interrogation. (Of note, ureteral jets may not be detectable in up to 25% of cases due to i nsufficient differences in specific gravity between ureteral and bladder urine). Miscellaneous: No free abdominal fluid. IMPRESSION: 1. Normal ultrasound appearance of kidneys. No renal stones or hydronephrosis. 2. Small postvoid residual in urinary bladder. 3. If clinical symptoms persist, CT KUB or CT IVP is recommended. Reviewed by: Hanny Turk MD on 04/02/2022 8:49 AM PST Approved by: Hanny Turk MD on 04/02/2022 8:49 AM PST Station ID: [id number]
== END 2022-04-01 08:02 | disposition home or self-care (01) ==
LOC: DI 08:01
PROVIDERS: ATTEND Registered Nurse
DX: N30.01 Acute cystitis with hematuria (principal); R10.30 Lower abdominal pain, unspecified; R10.84 Generalized abdominal pain; Z90.710 Acquired absence of both cervix and uterus